=== PATIENT | male | born 1995 | race Caucasian/White ===

== ENCOUNTER 2017-09-19 22:40 | Emergency (ER) | payer SELFPAY ==
[2017-09-19] VITALS (14 sets, daily range): BP systolic 137–151; BP diastolic 78–84; PULSE 95–128; RESP 10–17; TEMP 37.1; O2SAT 80–97
--- NOTE | 2017-09-19 23:24 | ED.GENADUL ---
Disposition Clinical Impression: Heroin overdose Disposition: HOME Condition: Stable Instructions: Narcotic Abuse (ED) Prescriptions: Naloxone HCl [Narcan Nasal [place]] 4 mg NS DIRECTED #2 spray Medical Decision Making - Medical Decision Making Pt here with heroin overdose that responded to narcan, HD stable. Will monitor to make sure he doesn't need any more narcan. patient remains stable and has not required any narcan, will d/c home. He is not interested in info on drug treatment programs - Differential Diagnosis heroin overdose, opiate overdose History of Present Illness - General Chief complaint: OD/Poison Stated complaint: BRADLY Time Seen by Provider: 09/19/17 22:47 Source: patient, EMS Mode of arrival: EMS Limitations: no limitations - History of Present Illness Initial comments: 21 yo male with hx of substance abuse comes in with cc of overdose. HE used IV heroin tonight and became unrespsonive so ems was called and they arrived and he had pinpoint pupils and breathing 6/min so gave him narcan and he became caox4. HE currently has nausea and otherwise no complaints. Denies other drug use. MD Complaint: heroin overdose Onset/Timin -: hour(s) Improves with: none Worsens with: none - Related Data Naloxone HCl [Narcan Nasal [place]] 4 mg NS DIRECTED #2 spray 09/19/17 Allergies Allergy/AdvReac Type Severity Reaction Status Date / Time No Known Allergies Allergy Unverified 09/19/17 23:11 Review of Systems Constitutional: denies: fever Respiratory: denies: shortness of breath Cardiovascular: denies: chest pain Gastrointestinal: nausea. denies: abdominal pain Neurological: denies: headache Comment: All other systems reviewed and negative Past Medical History - Past Medical History Medical history: no medical history Surgical history: no surgical history - Social History Alcohol use: heavy (Drinks half pint of alcohol and several beers daily for years), recent Drug use: cocaine, opiates, marijuana, methamphetamine, IVDA, prescription drug abuse General Exam - General Limitations: no limitations General appearance: alert, in no apparent distress - Head Head exam: Present: atraumatic - Eye Eye exam: Present: normal apperance - ENT ENT exam: Present: mucous membranes moist - Neck Neck exam: Present: normal inspection - Respiratory Respiratory exam: Absent: respiratory distress - Cardiovascular Cardiovascular Exam: Present: regular rate, other (HR 90 on my exam) - Neurological Exam Neurological exam: Present: alert, oriented X3 - Psychiatric Psychiatric exam: Present: normal affect - Skin Skin exam: Present: warm Course Vital Signs - 24 hr 09/19/17 09/19/17 22:57 23:03 Temperature 98.8 F Pulse 111 H Respiratory 17 17 Rate Blood Pressure 137/82 Pulse Oximetry 94 L
[2017-09-20] VITALS: BP 148/91; PULSE 123; PULSE 94; RESP 12; O2SAT 93
[2017-09-20 00:01] VITALS: PULSE 104; RESP 14; O2SAT 91
[2017-09-20 00:27] VITALS: BP 148/91; PULSE 94; RESP 14; O2SAT 91
== END 2017-09-20 00:22 | disposition home or self-care (01) ==
PROVIDERS: Emergency Provider Emergency Medicine; PCP Family Medicine
DX: T40.1X1A Poisoning by heroin, accidental (unintentional), initial encounter (principal); F11.10 Opioid abuse, uncomplicated; F10.10 Alcohol abuse, uncomplicated
CPT/HCPCS: 99283

== ENCOUNTER 2017-10-11 19:21 | Emergency (ER) | payer SELFPAY ==
[2017-10-11 19:25] VITALS: BP 132/77; PULSE 79; RESP 16; TEMP 36.9; O2SAT 97
--- NOTE | 2017-10-11 19:48 | ED.GENADUL_ITS ---
Disposition Clinical Impression: Alcohol intoxication Disposition: OTHER Condition: Fair Instructions: Alcohol Intoxication (ED) Additional Instructions: You are discharged into police custody until you are able to sober up and be reevaluated by mental health. Please discuss options to help with sobriety tomorrow when reevaluated by mental health. If you develop thoughts of self- harm, suicidal ideation, pain, shortness of breath or other new/worsening symptoms please seek care urgently once again. Referrals: Afshan Castaneda MD [Primary Care Provider] - Medical Decision Making - Medical Decision Making Patient is brought in today with chief complaint of intoxication. He is brought in by the police as his alcohol is noted to be 0.32. The report in order to bring the patient into their holding facility they need to have them evaluated with any reading over 0.3. On exam, the patient appears intoxicated but oriented and appropriate. He is cooperative. He denies any suicidal or homicidal ideation. He states that he is feeling great. No abnormalities are noted on this exam. Patient is noted to have healing wounds of his bilateral antecubital area consistent with injections. However, no signs of infection. Patient reports that he has not used in several days. He denies any other illicit drug use. No hemotympanum, no findings to suggest head trauma. Full range of motion of his neck and back. No midline tenderness to palpation. No trauma on chest or back. Strength is equal bilaterally in upper and lower extremities. Neuro exam is intact. At this point, I do not see any medical cause to keep patient. He will be safe custody with police. Mental health was here and plans to evaluate the patient tomorrow. I did discuss with him cessation with alcohol and illicit drug abuse. He does seem interested in help, I did discuss this with mental health will be evaluating him in the morning. At that time, she will discuss further options with him. All his questions and concerns were addressed. Patient is discharged into police custody. History of Present Illness - General Stated complaint: EVAL Time Seen by Provider: 10/11/17 19:23 Source: patient, police Mode of arrival: ambulatory Limitations: other (intoxicated) - History of Present Illness Initial comments: Patient is a 21-year-old male, brought in by police, with chief complaint of alcohol intoxication. The police report that they were contacted by his neighbor after they noted him stumbling down the sidewalk and then stumbling into an apple tree in his front yard. No known trauma. The police went to his house where they found him intoxicated, slurring his words and stumbling. He currently reports that he feels great. He denies any pain. No recent illness, no fevers, chills. No SOB, no CP. Denies BENNETT, neck pain, back pain. He denies any thoughts of self-harm. No suicidal ideation. Denies thoughts of harming others. Denies any hallucinations either visual or auditory. Patient has history of narcotic abuse. He was here 2 months ago after heroin overdose. Denies recent usage. - Related Data Naloxone HCl [Narcan Nasal [place]] 4 mg NS DIRECTED #2 spray 09/19/17 Allergies Allergy/AdvReac Type Severity Reaction Status Date / Time No Known Allergies Allergy Unverified 10/11/17 19:31 Review of Systems Constitutional: no symptoms reported Eyes: denies: vision change ENT: denies: ear pain Respiratory: no symptoms reported Cardiovascular: denies: chest pain, palpitations Gastrointestinal: denies: abdominal pain, nausea, vomiting, diarrhea Genitourinary: denies: urgency (Denies change in urinary habits) Musculoskeletal: denies: back pain Skin: denies: rash, lesions Neurological: denies: headache, weakness, numbness, paresthesias Psychiatric: denies: depression, auditory hallucinations, visual hallucinations , suicidal thoughts Past Medical History - Past Medical History Medical history: hypertension Asperger's, opioid addiction Surgical history: no surgical history - Social History Alcohol use: heavy (Drinks half pint of alcohol and several beers daily for years), recent Drug use: cocaine, opiates, marijuana, methamphetamine, IVDA, prescription drug abuse General Exam - General Limitations: no limitations General appearance: alert, in no apparent distress - Head Head exam: Present: atraumatic, normocephalic, normal inspection - Eye Eye exam: Present: normal apperance, PERRL, EOMI. Absent: scleral icterus, conjunctival injection, nystagmus, periorbital swelling, periorbital tenderness Pupils: Present: normal accommodation - ENT ENT exam: Present: normal exam, normal orophraynx, mucous membranes moist, TM's normal bilaterally, normal external ear exam - Neck Neck exam: Present: normal inspection, full ROM. Absent: tenderness - Respiratory Respiratory exam: Present: normal lung sounds bilaterally. Absent: respiratory distress, chest wall tenderness - Cardiovascular Cardiovascular Exam: Present: regular rate, normal rhythm, normal heart sounds - GI/Abdominal GI/Abdominal exam: Present: soft. Absent: distended, tenderness, guarding - Rectal Rectal exam: Present: deferred - Extremities Exam Extremities exam: Present: normal inspection (5/5 strength testing in both upper and lower extremities bilaterally. No signs of trauma.), full ROM, normal capillary refill. Absent: tenderness - Back Exam Back exam: Present: normal inspection. Absent: tenderness, paraspinal tenderness, vertebral tenderness, rash noted - Neurological Exam Neurological exam: Present: alert, oriented X3, CN II-XII intact, normal gait. Absent: motor sensory deficit - Psychiatric Psychiatric exam: Present: normal affect, normal mood, other (intoxicated ) - Skin Skin exam: Present: warm, dry, normal color (patient has impetigo) Course Vital Signs - 24 hr 10/11/17 19:25 Temperature 36.9 C Pulse 79 Respiratory 16 Rate Blood Pressure 132/77 Pulse Oximetry 97
[2017-10-11 19:57] VITALS: BP 132/77; PULSE 80; RESP 17; TEMP 36.9; O2SAT 97
== END 2017-10-11 20:02 | disposition other institution (70) ==
LOC: ER 10-12 10:14
PROVIDERS: Emergency Provider Student in an Organized Health Care Education/Training Program; PCP Family Medicine
DX: F10.129 Alcohol abuse with intoxication, unspecified (principal); I10 Essential (primary) hypertension
CPT/HCPCS: 99285; 99281

== ENCOUNTER 2017-12-08 17:24 | Emergency (ER) | payer SELFPAY ==
[2017-12-08 17:28] VITALS: BP 145/72; PULSE 105; RESP 17; TEMP 36.7; O2SAT 96
[2017-12-08 17:31] VITALS: RESP 17
[2017-12-08] MEDS: Normal Saline 1,000 ML 1000 ML IV (17:50)
[2017-12-08 17:56] LABS: *AMPHETAMINES SCREEN URINE Negative (Negative); *BARBITURATES SCREEN URINE Negative (Negative); *BENZODIAZEPINES SCREEN URINE Negative (Negative); Cannabinoids THC POSITIVE (Negative); Cocaine Screen,Urine Negative (Negative); METHADONE URINE SCREEN Negative (Negative); OPIATES URINE SCREEN POSITIVE (Negative)
[2017-12-08 17:56] LABS: Abs Immature Grans 0.07 k/cumm (0.0-0.09); Absolute Basophil Count 0.05 k/cumm (0.0-0.2); Absolute Monocyte Count 0.83 k/cumm (0.11-0.7); Absolute Neutrophil Count 7.66 k/cumm (1.2-6.7); Basophils % 0.4; Eosinophils % 3.3; HCT 47.3 % (40.0-50.0); HGB 15.5 g/dL (13.5-17.5); Immature Grans % 0.6; Lymphocytes % 26.4; Mean Corp. HGB Concentration 32.8 g/dL (32.0-36.0); Mean Corpuscular Volume 91.7 fL (80-95); Mean Platelet Volume 10.2 fL (8.0-11.0); Monocytes % 6.8; Neutrophils % 62.5; Platelet Count 189 x1000/uL (130-400); RBC 5.16 m/cumm (4.50-6.00); RBC Distribution Width 15.2 % (11.8-14.1); White Blood Cell Count 12.25 k/cumm (4.4-10.8)
[2017-12-08 17:57] LABS: Absolute Lymphocyte Count 3.23 k/cumm (1.2-3.4)
[2017-12-08 17:59] LABS: Tricyclic Antidepressants Negative (Negative)
[2017-12-08 18:12] LABS: ALT 26 U/L (12-78); AST 24 U/L (15-37); Albumin 4.2 g/dL (3.4-5.0); Alkaline Phosphatase 73 U/L (46-116); Anion Gap 12.3 mmol/L (3-11); BUN 9 mg/dL (7-18); Bilirubin, Total 0.2 mg/dL (0.2-1.0); CO2 25.7 mmol/L (21.0-32.0); CREATININE 0.79 mg/dL (0.70-1.30); Chloride 101 mmol/L (98-107); ETHANOL BLOOD 238.3 mg/dL (<3); Glucose 123 mg/dL (70-100); Potassium 3.6 mmol/L (3.5-5.1); Sodium 139 mmol/L (136-145); Total Protein 8.4 g/dL (6.4-8.2)
--- NOTE | 2017-12-08 19:47 | ED.GENADUL_ITS ---
Discharge Plan Disposition Patient Disposition: HOME Condition: Good Discharge Details Chief Complaint: OD/Poison Clinical Impression: Overdose Reason For Visit: BRADLY Primary Care Provider: Afshan Castaneda ED Provider: Rodo Moreno Home Meds and New Rx's Prescriptions: New naloxone [Narcan] 4 mg/actuation spray,non-aerosol 1 spray JESS ONCE PRN (Reason: opioid overdose) Qty: 2 RF: 0 No Action naloxone [Narcan] 4 MG spray,non-aerosol 4 mg NS DIRECTED Qty: 2 RF: 0 Discharge Instructions Instructions: Narcotic Abuse (ED) Additional Instructions: Please stop drinking alcohol and stop taking heroin. This will lead to early . Referrals: Afshan Castaneda MD [Primary Care Provider] - Medical Decision Making This is a 22-year-old male who presents for evaluation of overdose. He had a needle at home which he used to inject his regular dose of home heroin , he also had 4 alcoholic beverages today which he states is his norm. At home family thought that he stopped breathing, and they started CPR and him, EMS was called, when EMS arrived no Narcan had been given, over the patient was clearly breathing and fighting the person that was trying to do CPR. Patient was awake alert and oriented, and did demonstrate mild intoxication was brought to the ER for further evaluation. On initial assessment patient appears awake alert and oriented with no signs of hypoxemia or respiratory distress or failure. No evidence of decreased respirations. We will monitor the patient, I see no need to give Narcan at this time as he is stable. He denies any other drugs or intoxicants. He denies any other complaints 7:40 PM The patient has been observed here in the emergency department, he has shown no signs of respiratory distress. He is mentating well. He shows no signs of intoxication at this time. His pupils are reactive and no longer pinpoint. I feel that the heroin has worn off. The patient is able to speak clearly. There is no demonstration of any slurring of speech. There is evidence of clear decision making capacity. Patient is able to ambulate well without any difficulty. There are no signs of ataxia or stumbling motions. His brother has come to pick him up, and I feel he can be safely discharged home. We discussed the importance of not taking heroin and avoiding alcohol. I have extensively reviewed the treatment plan and discharge instructions with the patient and their family. I have addressed all patient concerns at this time. The patient and family was made aware of what symptoms to monitor for that would warrant a return to the emergency department. Discussed the plan with the patient and family, they demonstrate verbal understanding and agreement with our assessment and plan at this time. HPI General Date/Time Provider Initiated Documentation: 12/08/17 17:31 . HPI Narrative: This is a 22-year-old male with a past medical history of overdose and narcotic use, who presents today for alcohol use and opiate use. Per EMS and the patient he had been drinking for man cancer today, and took his regular IV injection dose of heroin. Family thought he had after this and started doing CPR, but the time the EMS arrived the patient was definitely not , and trying to push off the people doing the CPR. There was a needle right next to the patient. It was no need for Narcan at the time. The patient did appear slightly drowsy and pupils are slightly pinpoint however he was breathing and saturating well although clearly high. He was brought to the ER for further evaluation. He denies any homicidal or suicidal ideations, he denies any other medications that he is taking. He states that he just takes heroin and drinks beer. Patient denies any other complaints at this time, denies any recent surgeries, and denies any pertinent family history. Related Data Home Medications Medication Instructions Recorded Confirmed naloxone [Narcan] 4 mg NS DIRECTED #2 spray 09/19/17 12/08/17 naloxone [Narcan] 1 spray JESS ONCE PRN #2 each 12/08/17 Previous Rx's Medication Instructions Recorded naloxone [Narcan] 4 mg NS DIRECTED #2 spray 09/19/17 naloxone [Narcan] 1 spray JESS ONCE PRN #2 each 12/08/17 Allergies Allergy/AdvReac Type Severity Reaction Status Date / Time No Known Allergies Allergy Unverified 12/08/17 17:34 General Stated Complaint: OD/Poison DERIC: 2 Review of Systems Review of Systems All systems reviewed & are unremarkable except as noted in HPI and below PFSH Family History Mother Essential hypertension Depression Father No problems noted. Sister Essential hypertension Sister No problems noted. Brother No problems noted. FAMILY HISTORY Substance abuse Alcohol abuse Essential hypertension Depression Social History Smoking/Tobacco Use Status: Current every day Exam Narrative Exam Narrative: 1.Const: Well-nourished, Well-developed, appearing stated age 2.Eyes: PERRL, no conjunctival injection, and symmetrical lids. Pupils were slightly pinpoint. Otherwise reactive. 3.ENT: Atraumatic external nose and ears. Moist MM. Neck: Symmetric, trachea midline, No thyromegaly. 4.CVS: +S1/S2, No murmurs or gallops. Peripheral pulses 2+ and equal in all extremities. Brisk capillary refill in all extremities. 5.RESP: Unlabored respiratory effort. Clear to auscultation bilaterally. No wheezes rales or rhonchi 6.GI: Soft, Nontender/Nondistended, No hepatosplenomegaly. No guarding or rebound. 7.MSK: Normocephalic/Atraumatic, Extremities w/o deformity or ttp No cyanosis or clubbing, Normal movement of all extremities 8.Skin: Warm, Dry. No rashes or lesions. Old needle garcia are present. 9.Neuro: licensed tax consultant II-XII grossly intact. Sensation grossly intact, no focal neurologic deficits. 10.Psych: (AAO) x3. Appropriate mood and affect. Minimally intoxicated Course Vital Signs Temperature 36.7 C 12/08/17 17:28 Pulse 105 H 12/08/17 17:28 Respiratory Rate 17 12/08/17 17:28 Blood Pressure 145/72 H 12/08/17 17:28 Pulse Oximetry 96 12/08/17 17:28 Temperature 36.7 C 12/08/17 17:28 Temperature Source Skin 12/08/17 17:28 Pulse 105 H 12/08/17 17:28 Respiratory Rate 17 12/08/17 17:31 Respiratory Effort Non-Labored 12/08/17 17:31 Respiratory Depth Normal 12/08/17 17:31 Respiratory Pattern Normal 12/08/17 17:31 Blood Pressure 145/72 H 12/08/17 17:28 Pulse Oximetry 96 12/08/17 17:28 Pain Level 0 12/08/17 17:28 Lab/Test Results Lab/Test Results: Laboratory Tests Range/Units 12/08/17 12/08/17 12/08/17 17:35 17:45 17:45 WBC (4.4-10.8) k/cumm 12.25 H RBC (4.50-6.00) m/cumm 5.16 Hgb (13.5-17.5) g/dL 15.5 Hct (40.0-50.0) % 47.3 MCV (80-95) fL 91.7 MCH (27.0-33.0) pg 30.0 MCHC (32.0-36.0) g/dL 32.8 RDW (11.8-14.1) % 15.2 H Plt Count (130-400) x1000/uL 189 MPV (8.0-11.0) fL 10.2 Immature Gran % 0.6 Neutrophils % 62.5 Lymphocytes % 26.4 Monocytes % 6.8 Eosinophils % 3.3 Basophils % 0.4 Absolute Neutrophils (1.2-6.7) k/cumm 7.66 H Absolute Lymphocytes (1.2-3.4) k/cumm 3.23 Absolute Monocytes (0.11-0.7) k/cumm 0.83 H Absolute Eosinophils (0.0-0.7) k/cumm 0.40 Absolute Basophils (0.0-0.2) k/cumm 0.05 Sodium (136-145) mmol/L 139 Potassium (3.5-5.1) mmol/L 3.6 Chloride (98-107) mmol/L 101 Carbon Dioxide (21.0-32.0) mmol/L 25.7 Anion Gap (3-11) mmol/L 12.3 H BUN (7-18) mg/dL 9 Creatinine (0.70-1.30) mg/dL 0.79 Estimated GFR/1.73 m2 (mL/min/1.73m2) >= 60.00 Glucose (70-100) mg/dL 123 H Calcium (8.5-10.1) mg/dL 9.0 Total Bilirubin (0.2-1.0) mg/dL 0.2 AST (15-37) U/L 24 ALT (12-78) U/L 26 Alkaline Phosphatase (46-116) U/L 73 Total Protein (6.4-8.2) g/dL 8.4 H Albumin (3.4-5.0) g/dL 4.2 Urine Opiates Screen (Negative) Positive Urine Methadone Screen (Negative) Negative Ur Barbiturates Screen (Negative) Negative Ur Tricyclics Screen (Negative) Negative Ur Amphetamines Screen (Negative) Negative U Benzodiazepines Scrn (Negative) Negative Urine Cocaine Screen (Negative) Negative Ur THC Screen (Negative) Positive Ethyl Alcohol (<3) mg/dL 238.3
--- NOTE | 2017-12-09 07:08 | PDOC.ERCMPRO ---
Care Management Progress Note 12/09-Dr. Moreno requested assistance with an adult PCP ([facility] PCP office). No ED f/u needed. 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 Dr. Moreno also requesting information about SHAUN. Dr. Park container shop welder. Referral faxed to [facility]. Tried calling Earl but the woman that answered the phone stated she had not had contact with Earl for a long time and that she does not take messages for him.
--- NOTE | 2017-12-09 07:13 | CMPROGNOTE_ITS ---
Care Management Progress Note 12/09-Dr. Moreno requested assistance with an adult PCP ([facility] last PCP office). No ED f/u needed. Dr Park composition siding worker. Dr. Moreno also requesting information about SHAUN. Dr. Park composition siding worker. Referral faxed to [facility]. Tried calling Earl but the woman that answered the phone stated she had not had contact with Earl for a long time and that she does not take messages for him.
== END 2017-12-08 19:49 | disposition home or self-care (01) ==
PROVIDERS: Emergency Provider Student in an Organized Health Care Education/Training Program; PCP Family Medicine
DX: T40.1X1A Poisoning by heroin, accidental (unintentional), initial encounter (principal)
CPT/HCPCS: 36415; 80053; 80307; 99283; 80320; 85025

== ENCOUNTER 2018-02-15 00:33 | Emergency (ER) | payer SELFPAY ==
--- NOTE | 2018-02-15 00:28 | W.ED.GENAD ---
Discharge Plan Disposition Patient Disposition: HOME Condition: Stable Discharge Details Chief Complaint: HeadInjury Clinical Impression: Alcohol intoxication, Head trauma, Cervical strain Reason For Visit: BRADLY Primary Care Provider: Afshan Castaneda ED Provider: Monroe Ken Home Meds and New Rx's Prescriptions: No Action naloxone [Narcan] 4 MG spray,non-aerosol 4 mg NS DIRECTED Qty: 2 RF: 0 naloxone [Narcan] 4 mg/actuation spray,non-aerosol 1 spray JESS ONCE PRN (Reason: opioid overdose) Qty: 2 RF: 0 Discharge Instructions Instructions: Cervical Strain (ED) Additional Instructions: Your cat scan did not show any bleeding or broken bones if you have pain tomorrow take 1000mg tylenol and 600mg ibuprofen every 6 hours for pain as needed If you have pain this week see your primary care provider return to the emergency department if you have abdominal pain, chest pain or difficulty breathing Medical Decision Making 22 yo male reportedly had significant amount of alcohol tonight and fell twice from standing. Unknown loc, has hematoma to the posterior scalp. Is moving all extremities with intact sensation. Does have smell of alcohol on his breath with mild slurring of speech consistent with alcohol intoxication. Will CT head and c spine to evaluate for traumatic injuries and monitor pt remains stable, is now caox4, ct negative and no pain on rom and palpation. Will d/c with his friend, concussion precautions given Differential Diagnosis drug overdose, alcohol intoxication Imaging Data Radiologic Study: Attestation: I personally reviewed and interpreted this imaging study as follows: Imaging: CT Scan Radiologist's impression: no acute findings HPI General Mode of arrival: EMS. Date/Time Provider Initiated Documentation: 02/15/18 00:37. Limitations to Documentation: altered mental status (alcohol intoxication). Information obtained by: EMS. History of Present Illness 22 year old M presents to the emergency department with the chief complaint of fall, and is localized to the head. Patient reports no radiation. Patient started experiencing this hour(s) (1) and it has been constant. No relieving factors improve symptom(s), No exacerbating factors reported . Patient did receive the following treatments prior to arrival, none Related Data Home Medications Medication Instructions Recorded Confirmed naloxone [Narcan] 4 mg NS DIRECTED #2 spray 09/19/17 12/08/17 naloxone [Narcan] 1 spray JESS ONCE PRN #2 each 12/08/17 Previous Rx's Medication Instructions Recorded naloxone [Narcan] 4 mg NS DIRECTED #2 spray 09/19/17 naloxone [Narcan] 1 spray JESS ONCE PRN #2 each 12/08/17 Allergies Allergy/AdvReac Type Severity Reaction Status Date / Time No Known Allergies Allergy Unverified 02/15/18 00:43 General DERIC: 2 Review of Systems Review of Systems All systems reviewed & are unremarkable except as noted in HPI and below Constitutional Denies chills, Denies fever(s) and Denies weakness Cardiovascular Denies chest pain and Denies dyspnea Respiratory Denies dyspnea Gastrointestinal Denies abdominal pain, Denies nausea and Denies vomiting Neurologic Denies weakness Psychiatric Denies depression PFSH Family History Mother Essential hypertension Depression Father No problems noted. Sister Essential hypertension Sister No problems noted. Brother No problems noted. FAMILY HISTORY Substance abuse Alcohol abuse Essential hypertension Depression Social History Smoking/Tobacco Use Status: Current every day Exam Const General: no acute distress Orientation: alert HENMT Head: normal to inspection Ears: external ears normal General nose exam: external nose normal Mouth: moist mucous membranes Eyes General: appearance normal, both eyes and all related structures Neck Neck: normal visual inspection Resp Effort & Inspection: normal respiratory effort and able to speak in complete sentences Cardio Rate: regular rate Skin General skin exam: no rashes or lesions noted Neuro General: alert and other (oriented to name and place, not time. Mild slurred speech) Extrem General: normal to inspection Psych Mental Status: mental status grossly normal
--- NOTE | 2018-02-15 00:37 | DI.CT_ITS ---
SYMPTOM/DIAGNOSIS: FELL, INTOXICATED, HIT HEAD, PAIN NONCONTRAST HEAD CT: Comparison is made with 08/22/17. There is a normal lopez white matter differentiation. No intracranial hemorrhage, infarct, midline shift or mass effect is identified. The ventricles are intact. The basilar cisterns are patent. There is mucosal thickening seen in the ethmoid air cells bilaterally. There is marked mucosal thickening seen in the left maxillary sinus. No fluid levels are seen. The mastoid air cells are well pneumatized. The calvarium is intact. There does appear to be some soft tissue swelling over the scalp posteriorly. IMPRESSION: No acute intracranial process. No acute fracture is seen. CERVICAL SPINE CT: Multiple contiguous axial images of the cervical spine were obtained. Sagittal and coronal reformatted images were evaluated on the Siemens work station. There is normal alignment of the cervical spine. No acute fracture or subluxation is seen. There is mild straightening of the normal cervical lordosis. This may be due to muscle spasm or patient positioning. The soft tissues are unremarkable. The lung apices are clear. IMPRESSION: No acute fracture or subluxation of the cervical spine. There is some straightening of the normal cervical lordosis. This may be due to patient positioning or muscle spasm.
[2018-02-15 00:38] VITALS: BP 138/68; PULSE 100; RESP 20; TEMP 36.5; O2SAT 90
--- NOTE | 2018-02-15 00:41 | ED.GENADUL_ITS ---
Discharge Plan Disposition Patient Disposition: HOME Condition: Stable Discharge Details Chief Complaint: HeadInjury Clinical Impression: Alcohol intoxication, Head trauma, Cervical strain Reason For Visit: BRADLY Primary Care Provider: Afshan Castaneda ED Provider: Monroe Ken Home Meds and New Rx's Prescriptions: No Action naloxone [Narcan] 4 MG spray,non-aerosol 4 mg NS DIRECTED Qty: 2 RF: 0 naloxone [Narcan] 4 mg/actuation spray,non-aerosol 1 spray JESS ONCE PRN (Reason: opioid overdose) Qty: 2 RF: 0 Discharge Instructions Instructions: Cervical Strain (ED) Additional Instructions: Your cat scan did not show any bleeding or broken bones if you have pain tomorrow take 1000mg tylenol and 600mg ibuprofen every 6 hours for pain as needed If you have pain this week see your primary care provider return to the emergency department if you have abdominal pain, chest pain or difficulty breathing Medical Decision Making 22 yo male reportedly had significant amount of alcohol tonight and fell twice from standing. Unknown loc, has hematoma to the posterior scalp. Is moving all extremities with intact sensation. Does have smell of alcohol on his breath with mild slurring of speech consistent with alcohol intoxication. Will CT head and c spine to evaluate for traumatic injuries and monitor pt remains stable, is now caox4, ct negative and no pain on rom and palpation. Will d/c with his friend, concussion precautions given Differential Diagnosis drug overdose, alcohol intoxication Imaging Data Radiologic Study: Attestation: I personally reviewed and interpreted this imaging study as follows: Imaging: CT Scan Radiologist's impression: no acute findings HPI General Mode of arrival: EMS . Date/Time Provider Initiated Documentation: 02/15/18 00:37 . Limitations to Documentation: altered mental status (alcohol intoxication) . Information obtained by: EMS . History of Present Illness 22 year old M presents to the emergency department with the chief complaint of fall, and is localized to the head. Patient reports no radiation. Patient started ex periencing this hour(s) (1) and it has been constant. No relieving factors improve symptom(s), No exacerbating factors reported . Patient did receive the following treatments prior to arrival, none Related Data Home Medications Medication Instructions Recorded Confirmed naloxone [Narcan] 4 mg NS DIRECTED #2 spray 09/19/17 12/08/17 naloxone [Narcan] 1 spray JESS ONCE PRN #2 each 12/08/17 Previous Rx's Medication Instructions Recorded naloxone [Narcan] 4 mg NS DIRECTED #2 spray 09/19/17 naloxone [Narcan] 1 spray JESS ONCE PRN #2 each 12/08/17 Allergies Allergy/AdvReac Type Severity Reaction Status Date / Time No Known Allergies Allergy Unverified 02/15/18 00:43 General DERIC: 2 Review of Systems Review of Systems All systems reviewed & are unremarkable except as noted in HPI and below Constitutional Denies chills, Denies fever(s) and Denies weakness Cardiovascular Denies chest pain and Denies dyspnea Respiratory Denies dyspnea Gastrointestinal Denies abdominal pain, Denies nausea and Denies vomiting Neurologic Denies weakness Psychiatric Denies depression PFSH Family History Mother Essential hypertension Depression Father No problems noted. Sister Essential hypertension Sister No problems noted. Brother No problems noted. FAMILY HISTORY Substance abuse Alcohol abuse Essential hypertension Depression Social History Smoking/Tobacco Use Status: Current every day Exam Const General: no acute distress Orientation: alert HENMT Head: normal to inspection Ears: external ears normal General nose exam: external nose normal Mouth: moist mucous membranes Eyes General: appearance normal, both eyes and all related structures Neck Neck: normal visual inspection Resp Effort & Inspection: normal respiratory effort and able to speak in complete sentences Cardio Rate: regular rate Skin General skin exam: no rashes or lesions noted Neuro General: alert and other (oriented to name and place, not time. Mild slurred speech) Extrem General: normal to inspection Psych Mental Status: mental status grossly normal
--- NOTE | 2018-02-15 01:30 | DI.VRAD_ITS ---
EXAM: CT Head Without Contrast EXAM DATE/TIME: 02/15/2018 12:39 AM CLINICAL HISTORY: 22 years old, male; Injury or trauma; Fall; Initial encounter; Blunt trauma (contusions or hematomas); Consciousness not specified; Injury date: 02/14/18; Injury details: Fall and hit head, +etoh TECHNIQUE: Axial computed tomography images of the head/brain without contrast. All CT scans at this facility use at least one of these dose optimization techniques: automated exposure control; mA and/or kV adjustment per patient size (includes targeted exams where dose is matched to clinical indication); or iterative reconstruction. Coronal and sagittal reformatted images were created and reviewed. COMPARISON: No relevant prior studies available. FINDINGS: Brain: No acute intracranial hemorrhage. No mass lesion or mass effect. Beltre/white matter differentiation is unremarkable. Cerebellum is unremarkable. Cisterns are unremarkable. Brainstem is unremarkable. No suprasellar mass. Ventricles: Normal. No ventriculomegaly. Bones/joints: Posterior scalp soft tissue swelling.No evidence of fracture. Sinuses: Extensive mucosal thickening in the left maxillary sinus. Mild mucosal thickening in bilateral ethmoid sinuses. Mastoid air cells: Normal as visualized. No mastoid effusion. Soft tissues: Normal. IMPRESSION: Posterior scalp soft tissue swelling.No evidence of fracture. No evidence of acute intracranial bleed. EXAM: CT Cervical Spine Without Contrast EXAM DATE/TIME: 02/15/2018 12:39 AM CLINICAL HISTORY: 22 years old, male; Injury or trauma; Fall; Initial encounter; Blunt trauma (contusions or hematomas); Consciousness not specified; Injury date: 02/14/18; Injury details: Fall and hit head, +etoh TECHNIQUE: Axial computed tomography images of the cervical spine without intravenous contrast. All CT scans at this facility use at least one of these dose optimization techniques: automated exposure control; mA and/or kV adjustment per patient size (includes targeted exams where dose is matched to clinical indication); or iterative reconstruction. Coronal and sagittal reformatted images were created and reviewed. COMPARISON: No relevant prior studies available. FINDINGS: Vertebrae: No fracture or dislocation. Vertebral body heights are within normal limits. Straightening of normal lordotic curvature. Discs/Spinal canal/Neural foramina: Disc heights are maintained. No CT evidence of significant disc herniation. No disc protrusion or extrusion. Soft tissues: Unremarkable. Lungs: Lung apices are normal. IMPRESSION: Straightening of normal lordotic curvature. No fracture or dislocation in cervical spine. Dictated and Authenticated by: To Encarnacion MD. Ordering:MYAH Childress MD
== END 2018-02-15 02:51 | disposition home or self-care (01) ==
PROVIDERS: Emergency Provider Emergency Medicine; PCP Family Medicine
DX: S09.90XA Unspecified injury of head, initial encounter (principal); S16.1XXA Strain of muscle, fascia and tendon at neck level, initial encounter; F10.129 Alcohol abuse with intoxication, unspecified; W18.39XA Other fall on same level, initial encounter
CPT/HCPCS: 70450; 72125; L0172

== ENCOUNTER 2020-06-20 16:45 | Emergency (ER) | payer MEDICAID, SELFPAY ==
--- NOTE | 2020-06-20 16:56 | ED.GENADUL_ITS ---
Discharge Plan Disposition Patient Disposition: HOME Condition: Good Discharge Details Clinical Impression: Contusion of foot, Foot swelling Primary Care Provider: Unknown,Unknown ED Provider: Laverne Amador Discharge Instructions Instructions: Foot Contusion (ED) Additional Instructions: Imaging is reassuring today. No evidence of fracture. This is likely all associated with contusion. Please encourage rest, ice, elevation. Tylenol and ibuprofen as needed for discomfort. You may continue with the postoperative shoe to help with discomfort and immobilization. You may advance activities as tolerated. Referral for local primary care has been sent. If you develop any new or worsening symptoms please seek care urgently once again. Otherwise, please follow-up with primary care in 2 weeks for reevaluation. Stand Alone Forms: Work Release Discharge Data Discharge Date/Time-TO BE ENTERED AT DEPARTURE: 06/20/20 18:29 Medical Decision Making Patient is a pleasant 24-year-old male presenting today with chief complaint of left foot pain. He reports that a few days ago he was moving cinderblocks when 1 excellently fell landing on the forefoot. Since then, he has been having pain, swelling. The pain is much worse when weightbearing. Denies other injury from the incident. Denies any numbness or tingling. On exam, patient has swelling over the dorsal aspect of the forefoot. No ecchymosis or breaks in the skin. Neurovascularly intact. No injury elsewhere. Plan for imaging. Patient has been using Tylenol and ibuprofen to help with discomfort. FINDINGS: Bones/joints: Normal. Soft tissues: There is soft tissue swelling at the dorsum of the foot. IMPRESSION: Soft tissue swelling. Discussed findings with the patient. Encourage rest, ice, elevation. Tylenol and/or ibuprofen as needed for discomfort. Advised contusion. Will give a postoperative splint to help with discomfort. Return precautions were discussed. Patient does not have a local primary care, will have care management help and orchestrating follow-up in the next 2 weeks for r eevaluation. All of his questions and concerns were addressed and he is in agreement this plan. Work note given at patient's request. HPI General Mode of arrival: ambulatory . Date/Time Provider Initiated Documentation: 06/20/20 16:56 . Limitations to Documentation: no limitations . Information obtained by: patient and RN notes reviewed . History of Present Illness 24 year old M presents to the emergency department with the chief complaint of left foot pain, described as moderate, with intensity rated at 5. Quality is described as aching, and is localized to the left and lower extremity. Patient reports no radiation. Patient started experiencing this day(s) (3) and it has been constant. Immobilization improves symptom(s), Movement worsens symptoms . Patient notes no other symptoms.. Patient did receive the following treatments prior to arrival, NSAID and other (tylenol) Related Data Allergies Allergy/AdvReac Type Severity Reaction Status Date / Time No Known Allergies Allergy Unverified 06/20/20 17:20 General DERIC: 2 Review of Systems Constitutional Constitutional: Reports as per HPI, Denies chills, Denies fever(s), Denies headache(s) and Denies weakness ENT Ears, Nose, Mouth, and Throat: Denies headache(s) Cardiovascular Cardiovascular: Reports as per HPI Respiratory Respiratory: Reports as per HPI and Denies cough Musculoskeletal Musculoskeletal: Reports as per HPI and Denies tingling Integumentary/Breasts Skin/Breast: Reports as per HPI, Denies rash and Denies wounds Neurologic Neurologic: Reports as per HPI, Denies headache(s), Denies tingling, Denies paresthesias and Denies weakness PFSH Family History Mother Essential hypertension Depression Father No problems noted. Sister Essential hypertension Sister No problems noted. Brother No problems noted. FAMILY HISTORY Substance abuse Alcohol abuse Essential hypertension Depression Social History Smoking/Tobacco Use Status: Current every day Smoking risk assessment performed?: Yes Alcohol Intake: current Alcohol Intake frequency: holidays/special occasions only Drug use: Daily Substance use type: marijuana Do you feel safe at home: Yes Do you feel safe in your relationship?: Yes Exam Const General: cooperative, healthy appearing, comfortable, no acute distress, well developed and well groomed Nutritional Appearance: average body habitus and well nourished Orientation: alert and awake Resp Effort & Inspection: normal respiratory effort, able to speak in complete sentences and no respiratory distress Cardio Rate: regular rate Rhythm: regular rhythm Skin General skin exam: no rashes or lesions noted Lesions: no lesions Rashes: no rashes Trauma: no lacerations or abrasions Neuro General: patient alert and patient awake Cognition: normal cognition Speech: speech normal Gait: antalgic Motor: muscle tone normal throughout Sensory Exam: no sensory deficits noted Extrem Ankle/foot/toe images: 1. Area of swelling. No ecchymosis. No break in the skin. No palpable deformity. No pain palpation about the toes. Range of motion is intact. Sensation is intact. 2+ distal pulses. No pain with palpation over the proximal fifth metatarsal. No pain in the ankle. Psych Appearance: grossly normal and well kempt Mental Status: mental status grossly normal Speech and Movement: speech and movement normal
[2020-06-20 17:14] VITALS: BP 143/73; PULSE 72; RESP 15; TEMP 36.6; O2SAT 97
--- NOTE | 2020-06-20 17:15 | DI.RAD_ITS ---
Exam(s) XR FOOT LT COMPLETE EXAM: XR FOOT LT COMPLETE CLINICAL HISTORY: dropped cinder block on foot, forefoot pain TECHNIQUE: COMPARISON: No exams were available for comparison FINDINGS: Three views were obtained. No fracture is seen. IMPRESSION: RADIATION DOSE DELIVERED: Total DLP
--- NOTE | 2020-06-20 17:45 | DI.VRAD_ITS ---
PROCEDURE INFORMATION: Exam: XR Left Foot Exam date and time: 06/20/2020 5:33 PM Age: 24 years old Clinical indication: Left; Patient HX: Dropped cinder block on foot, forefoot pain TECHNIQUE: Imaging protocol: XR Left foot. Views: 3 or more views. COMPARISON: No relevant prior studies available. FINDINGS: Bones/joints: Normal. Soft tissues: There is soft tissue swelling at the dorsum of the foot. IMPRESSION: Soft tissue swelling. Dictated and Authenticated by: Jorge Bbab MD. Ordering:LETA Galloway MD
--- NOTE | 2020-06-20 18:04 | NUR.NOTE ---
Nursing Note: Referral given to Care Management to establish care/follow up foot contusion, in 2 weeks. Gracie Diaz
--- NOTE | 2020-06-21 11:16 | PDOC.ERCMPRO ---
Care Management Progress Note CM faxed referral to [facility] for PCP attachment as requested.
--- NOTE | 2020-06-26 14:31 | NUR.NOTE ---
Nursing Note: Patient called lost his work release note. Asked if we could fax to his place of work and I faxed it. Gracie Diaz Melinda fax [phone].
== END 2020-06-20 18:29 | disposition home or self-care (01) ==
PROVIDERS: Emergency Provider Physician Assistant
DX: S90.32XA Contusion of left foot, initial encounter (principal); W20.8XXA Other cause of strike by thrown, projected or falling object, initial encounter
CPT/HCPCS: 99283; 73630

== ENCOUNTER 2021-06-27 10:03 | Emergency (ER) | payer MEDICAID, SELFPAY ==
[2021-06-27 10:05] VITALS: BP 158/98; PULSE 100; RESP 16; TEMP 36.2; O2SAT 96
--- NOTE | 2021-06-27 10:16 | W.ED.GENAD ---
Discharge Plan Disposition Patient Disposition: AGAINST MEDICAL ADVICE Condition: Stable Discharge Details Clinical Impression: Overdose of fentanyl, Respiratory arrest Primary Care Provider: Unknown,Unknown ED Provider: Xochitl Solis Home Meds and New Rx's Prescriptions: No Action No Known Home Meds Discharge Instructions Instructions: Narcotic Safety (ED), Adult Overdose (ED) Additional Instructions: You are leaving the hospital AGAINST MEDICAL ADVICE. The effects of Narcan wears off and you may stop breathing again due to long-lasting effects of fentanyl. You are given Narcan to go to use as needed and directed. You have been placed on care management list to arrange for a follow-up appointment with the primary care doctor to establish care and for reevaluation. Return to the emergency department with any worsening or new concerning symptoms. Discharge Data Discharge Date/Time-TO BE ENTERED AT DEPARTURE: 06/27/21 10:33 Discharge Physician: Xochitl Solis Medical Decision Making 25-year-old male presented as a reported respiratory arrest after suspected fentanyl overdose. EMS reported patient's friend called EMS after CPR in progress per friend for suspected fentanyl overdose. Patient admitted to injecting heroin prior to EMS arrival. He states he also started methadone today. Initial saturation 70% on room air on EMS arrival with breaths provided with BVM. Patient was given a total of 6 mg Narcan per EMS. EMS reports patient was slow to respond but eventually awake and alert with oxygen saturation 96% on room air. Arrived to the ED awake and alert with oxygen saturation 96% on room air. Blood pressure 158/98. Pulse 100. He appears disheveled. No evidence of trauma on exam. He appears nontoxic. It was reported by EMS that friend stated patient told him he injected fentanyl to harm himself. Patient denied this to the nurse and myself. He states he has no thoughts of harming himself. Patient states he would like to leave. The risks of and disability due to short half-life of Narcan resulting in respiratory depression explained and patient understands. He demonstrates capacity to make decisions. AMA form signed. He was given Narcan to go. He was placed on care management list to arrange for follow-up appointment with a primary care doctor to establish care. Usual and customary return precautions given prior to leaving. Jo with [facility] was provided with pt's information for follow up per previously reported self harm. Medical Records Medical records reviewed: Yes I reviewed the patient's medical records. HPI General Mode of arrival: ambulatory. Date/Time Provider Initiated Documentation: 06/27/21 10:15. Limitations to Documentation: no limitations. Information obtained by: patient. HPI Narrative: Patient is a 25-year-old male who presents per EMS for respiratory arrest with suspected fentanyl overdose with response to Narcan. EMS called to scene after friend found patient not breathing. EMS reported that friend started CPR prior to EMS arrival. Upon EMS arrival, patient had a faint pulse and was given a total of 6 mg of Narcan and breaths provided with BVM. EMS reports that patient was slow to respond to the Narcan and additionally had oxygen saturations of 70% but eventually was 96% on room air and awake. Patient reports that he injected heroin or fentanyl in his left arm prior to EMS arrival. EMS had reported that friend stated patient told him he did to harm himself but patient adamantly denies this. He states he has no desire to harm himself and is requesting to go home. Patient states he started methadone from the [facility]. Patient states he occasionally smokes crack cocaine and last use last night. Related Data Home Medications Medication Instructions Recorded Confirmed Unknown [No Known Home Meds] 06/27/21 06/27/21 Allergies Allergy/AdvReac Type Severity Reaction Status Date / Time No Known Allergies Allergy Unverified 06/27/21 10:12 General Stated Complaint: OD/Poison DERIC: 2 Review of Systems All systems reviewed & are unremarkable except as noted in HPI and below Constitutional Constitutional: Denies chills, Denies excessive sweating, Denies fatigue, Denies fever(s), Denies weakness and Denies weight loss Eyes Eyes: Reports system reviewed and no additional complaints, except as documented and Denies blurry vision ENT Ears, Nose, Mouth, and Throat: Denies vertigo, Denies dizziness, Denies otalgia, Denies nasal congestion, Denies sore throat and Denies throat swelling Cardiovascular Cardiovascular: Denies chest pain, Denies syncope, Denies rapid heart rate and Denies dyspnea Respiratory Respiratory: Denies chest congestion, Denies cough, Denies pain on inspiration and Denies dyspnea Gastrointestinal Gastrointestinal: Denies abdominal pain, Denies diarrhea and Denies vomiting Genitourinary Genitourinary: Denies hematuria, Denies dysuria and Denies flank pain Musculoskeletal Musculoskeletal: Denies back pain and Denies joint swelling Integumentary/Breasts Skin/Breast: Denies lesions and Denies rash Neurologic Neurologic: Denies behavioral changes, Denies confusion, Denies vertigo, Denies dizziness, Denies syncope, Denies localized weakness and Denies weakness Psychiatric Psychiatric: Denies behavioral changes, Denies confusion and Denies depression Endocrine Endocrine: Denies excessive sweating and Denies fatigue Hematologic/Lymphatic Hematologic/Lymphatic: Denies easy bruising and Denies lymphadenopathy Allergic/Immunologic Allergic/Immunologic: Denies throat swelling PFSH All Active Problems (Updated 06/27/21 @ 10:26 by Xochitl Solis DO) Contusion of foot (Acute) Foot swelling (Acute) Overdose of fentanyl (Acute) Respiratory arrest (Acute) Medical History (Updated 06/27/21 @ 10:26 by Xochitl Solis DO) Vitiligo Surgical History (Updated 06/27/21 @ 10:26 by Xochitl Solis DO) No significant past surgical history Family History Mother Essential hypertension Depression Father No problems noted. Sister Essential hypertension Sister No problems noted. Brother No problems noted. FAMILY HISTORY Substance abuse Alcohol abuse Essential hypertension Depression Social History Smoking/Tobacco Use Status: Current every day Tobacco Type: cigarettes Smoking risk assessment performed?: Yes Alcohol Intake: current Alcohol Intake frequency: holidays/special occasions only Drug use: Daily Substance use type: marijuana and opiates Do you feel safe at home: Yes Do you feel safe in your relationship?: Yes Exam Const General: cooperative and disheveled Orientation: alert, awake and oriented x3 HENMT Head: normal to inspection Ears: hearing grossly normal bilaterally and external ears normal General nose exam: external nose normal Face and sinus: normal facial exam Mouth: oral mucosae normal and tongue abnormal discolored (yellowish, consistent with tobacco use) Teeth and gingiva: poor dentition Throat: posterior oropharynx normal Eyes General: appearance normal, both eyes and all related structures Eyelids: eyelids normal Pupils: PERRL EOM: EOM intact bilaterally Neck Neck: normal visual inspection Lymphatic: no lymphadenopathy noted Chest Chest: normal inspection of the chest Resp Effort & Inspection: normal respiratory effort and able to speak in complete sentences Auscultation: clear to auscultation bilaterally Cardio Rate: regular rate Rhythm: regular rhythm GI Inspection: normal to inspection Palpation: soft, not firm, no guarding, no hepatosplenomegaly, no masses and nontender Auscultation: normal bowel sounds Back/Spine/Pelvis Back: no CVA tenderness Skin General skin exam: no rashes or lesions noted Neuro General: patient alert and patient awake Cognition: normal cognition Speech: speech normal Gait: normal gait Motor: muscle tone normal throughout Sensory Exam: no sensory deficits noted Extrem General: normal to inspection, full ROM and capillary refill normal Psych Appearance: grossly normal Mental Status: mental status grossly normal Speech and Movement: speech and movement normal Affect: normal affect Thought Process: normal Course Vital Signs Vital signs: Vital Signs Temperature 97.2 F L 06/27/21 10:05 Pulse 100 H 06/27/21 10:05 Respiratory Rate 16 06/27/21 10:05 Blood Pressure 158/98 H 06/27/21 10:05 Pulse Oximetry 96 06/27/21 10:05 Temperature 97.2 F L 06/27/21 10:05 Pulse 100 H 06/27/21 10:05 Respiratory Rate 16 06/27/21 10:05 Respiratory Effort 06/27/21 10:11 Blood Pressure 158/98 H 06/27/21 10:05 Blood Pressure Position Supine 06/27/21 10:05 Pulse Oximetry 96 06/27/21 10:05 Oxygen Delivery Method Room Air 06/27/21 10:05 Oxygen Flow Rate 0 06/27/21 10:05 Pain Level 0 06/27/21 10:05
--- NOTE | 2021-06-27 10:30 | NUR.NOTE ---
Nursing Note: Referral given to Care Management needs PCP, re-evaluate for OD, establish care within 2 weeks. CRISTINA
--- NOTE | 2021-06-27 10:46 | NUR.NOTE ---
pt denies SI/HI
--- NOTE | 2021-06-28 09:35 | PDOC.ERCMACT ---
- If Service Date Differs Date of service: 06/28/21 Time of Service: 09:35 Care Management Activity Note Earl is seen in the ED for an overdose of fentanyl and respiratory arrest. At the request of ED provider, [facility]WOT coordinates a referral to RACHID Watkins, of [facility], on-call provider, to assist Earl in obtaining a follow up appointment and in establishing care with a PCP. He has Medicaid for insurance.
== END 2021-06-27 10:33 | disposition left against medical advice (07) ==
PROVIDERS: Emergency Provider Physician Assistant
DX: T40.411A Poisoning by fentanyl or fentanyl analogs, accidental (unintentional), initial encounter (principal); R40.4 Transient alteration of awareness; Z53.29 Procedure and treatment not carried out because of patient's decision for other reasons
CPT/HCPCS: 99283

== ENCOUNTER 2021-08-25 17:55 | Inpatient (IN) | payer MEDICAID, SELFPAY ==
[2021-08-25 18:02] VITALS: BP 146/70; PULSE 85; RESP 18; TEMP 37.8; O2SAT 80
--- NOTE | 2021-08-25 18:15 | DI.CT_ITS ---
Exam(s) CT PELVIC W EXAM: CT PELVIC W CLINICAL HISTORY: cellulitis glute, question abscess. TECHNIQUE: Imaging Protocol: Axial computed tomography images with coronal and sagittal reformatted images were created and reviewed CONTRAST MATERIAL: Intravenous: Omnipaque 100cc Oral: None COMPARISON: CR,XR XR FOOT LT COMPLETE from 06/20/2020 FINDINGS: PELVIS: There is abundant abnormal subcutaneous fat streaking over the entire right buttock. No drainable ab scess. No gas in the soft tissues. The fat plane between the deep fat and the gluteus deepak muscl e is somewhat indistinct. There is no obvious skin ulcer nor radiopaque foreign body. No laceration evident. OSSEOUS:No pelvic or hip fractures evident. No significant osseous lesions.No evidence of osteomyeli tis. ANTERIOR ABDOMINAL WALL/GI:No evidence of bowel obstruction. No evidence of appendicitis.No evidence of sigmoid diverticulitis. LYMPH NODES: There is no intrapelvic nor inguinal adenopathy. REPRODUCTIVE: Prostate and seminal vesicles unremarkable. URINARY BLADDER: No calculi nor obvious masses evident IMPRESSION: 1. There is prominent abnormal stranding in the posterior subcutaneous fat tissues over the right glu teal region extending up to the L5 level. There is also loss of fat plane between this stranding and the subjacent gluteal musculature. There is no obvious drainable fluid collection. No soft tissue gas seen. No radiopaque foreign body. Close follow-up is recommended. 2. Soft tissue stranding approaches the coccyx, however, there is no evidence of osteomyelitis on CT scan. RADIATION DOSE DELIVERED: 287mGy.cm Total DLP DATA REPOSITORY: All CT scans at this facility are submitted to the National Radiology Data Registry (NRDR) Dose Index Registry (DIR) with the [employer] ([employer]). RADIATION OPTIMIZATION: All CT scans at this facility use at least one of these dose optimization te chniques: automated exposure control; mA and/or kV adjustment per patient size (includes targeted exa ms where dose is matched to clinical indication); or iterative reconstruction.
[2021-08-25 19:13] LABS: Lactate 0.7 mmol/L (0.6-1.4)
[2021-08-25 19:14] LABS: Abs Immature Grans 0.05 10^3/uL (0.0-0.06); Absolute Basophil Count 0.08 10^3/uL (0.0-0.2); Absolute Eosinophil Count 0.28 10^3/uL (0.0-0.7); Absolute Lymphocyte Count 2.02 10^3/uL (1.2-3.4); Absolute Monocyte Count 1.48 10^3/uL (0.1-0.8); Absolute Neutrophil Count 11.84 10^3/uL (1.2-6.7); Basophils % 0.5; Eosinophils % 1.8; HGB 13.1 g/dL (13.5-17.5); Immature Grans % 0.3; Lymphocytes % 12.8; MCH 29.8 pg (27.0-33.0); MCHC 34.5 % (32.0-36.0); MCV 86 fL (80-95); MPV 10.5 fL (8.0-11.0); Monocytes % 9.4; Neutrophils % 75.2; Platelet Count 182 10^3/uL (130-400); RDW-SD 41.3 fL; WBC 15.75 10^3/uL (4.4-10.8)
[2021-08-25] MEDS: PIPERACILLIN/TAZO 3.375 GM in Normal Saline 50 ML IVPB (19:22)
[2021-08-25 19:26] VITALS: BP 115/68; PULSE 88; RESP 18; O2SAT 94
[2021-08-25 19:34] LABS: ALT 33 U/L (16-63); AST 24 U/L (15-37); Albumin 3.6 g/dL (3.4-5.0); Alkaline Phosphatase 79 U/L (46-116); Anion Gap 7.4 mmol/L (3-11); BUN 11 mg/dL (7-18); Bilirubin, Total 0.6 mg/dL (0.2-1.0); CO2 28.6 mmol/L (21.0-32.0); Chloride 98 mmol/L (98-107); Glucose 113 mg/dL (74-106); Magnesium 1.8 mg/dL (1.8-2.4); Sodium 134 mmol/L (136-145); Total Protein 7.7 g/dL (6.4-8.2); Troponin I < 50 ng/L (<or=60)
[2021-08-25] MEDS: Omnipaque 350 MG/ML 100 ML BTL IJ (19:38)
--- NOTE | 2021-08-25 20:44 | DI.VRAD_ITS ---
Addendum created by Lidya Casillas MD on 08/25/2021 8:47:41 PM EDT: THIS REPORT CONTAINS FINDINGS THAT MAY BE CRITICAL TO PATIENT CARE. The findings were verbally communicated via telephone conference with Soraida Beckford at 8:47 PM EDT on 08/25/2021. The findings were acknowledged and understood. Initial report created on 08/25/2021 8:43:53 PM EDT: PROCEDURE INFORMATION: Exam: CT Pelvis With Contrast Exam date and time: 08/25/2021 7:34 PM Age: 25 years old Clinical indication: Other: Cellulitis glute, question abscess TECHNIQUE: Imaging protocol: Computed tomography of the pelvis with contrast. Radiation optimization: All CT scans at this facility use at least one of these dose optimization techniques: automated exposure control; mA and/or kV adjustment per patient size (includes targeted exams where dose is matched to clinical indication); or iterative reconstruction. Contrast material: OMNI 350; Contrast volume: 100 ml; Contrast route: INTRAVENOUS (IV); COMPARISON: No relevant prior studies available. FINDINGS: Stomach and bowel: There is a small bowel intussusception in the left lower quadrant on series 4, image 23 with some wall thickening of the bowel just adjacent to the intussusceptum. It should be noted that intussusceptions could be transient or associated with a lead point such as a lesion. Appendix: No evidence of appendicitis. Intraperitoneal space: Unremarkable. No free air. No significant fluid collection. Lymph nodes: There is right groin lymph node prominence/mild enlargement. This is favored to be reactive. Urinary bladder: The internal contents of the urinary bladder measure greater than water density. Components of blood or infection are not excluded. Reproductive: Normal as visualized. Bones/joints: Scattered sclerotic foci in the bones. In the absence of known malignancy, these most likely represent bone islands. No acute fracture. No dislocation. Soft tissues: There is stranding in the posterior subcutaneous soft tissues of the right gluteal region which extends superiorly and medially to the level of the L5 vertebral body. There is a loss of fat plane between this stranding and the adjacent gluteal musculature/coccyx for which a component muscular infection or osteomyelitis is not excluded. There is no discrete rounded fluid collection to suggest abscess. No gas is identified. However, it should be noted that the absence of gas does not exclude necrotizing infection/necrotizing fasciitis. IMPRESSION: 1. There is stranding in the posterior subcutaneous soft tissues of the right gluteal region which extends superiorly and medially to the level of the L5 vertebral body. There is a loss of fat plane between this stranding and the adjacent gluteal musculature/coccyx for which a component muscular infection or osteomyelitis is not excluded. There is no discrete rounded fluid collection to suggest abscess. No gas is identified. However, it should be noted that the absence of gas does not exclude necrotizing infection/necrotizing fasciitis. 2.There is a small bowel intussusception in the left lower quadrant on series 4, image 23 with some wall thickening of the bowel just adjacent to the intussusceptum. It should be noted that intussusceptions could be transient or associated with a lead point such as a lesion. Clinical correlation with pain and symptomatology recommended. Surgical consult could be considered. Short-term follow-up imaging could also be considered. 3. Right groin lymph node prominence/mild enlargement. This is favored to be reactive. 4. The internal contents of the urinary bladder measure greater than water density. Components of blood or infection are not excluded. Other findings/details as above. Dictated and Authenticated by: Lidya Casillas MD. Ordering:ALYSSIA Quigley MD
[2021-08-25 21:17] LABS: Source Nasal/Nares
[2021-08-25] MEDS: Nicotine 21 MG/24 HR PATCH TD (21:38)
[2021-08-25] MEDS: VANCOMYCIN 2,000 MG in Normal Saline 500 ML 250 MG IVPB (21:40)
[2021-08-25 22:07] LABS: COVID-19 PCR Negative (Negative)
--- NOTE | 2021-08-25 22:31 | ED.GENADUL_ITS ---
Discharge Plan Disposition Patient Disposition: [facility] INPATIENT Condition: Stable Discharge Details Clinical Impression: Cellulitis of buttock, right Admit Date/Time: 08/26/21 00:55 Admit Provider: Francisco Leahy Attending Provider: Francisco Leahy Primary Care Provider: Unknown,Unknown ED Provider: Soraida Beckford Discharge Data Discharge Date/Time-TO BE ENTERED AT DEPARTURE: 08/26/21 01:24 Medical Decision Making Given severity of cellulitis versus abscess, CT scan, diagnostic labs were ordered, there is a large area of cellulitis with possible extension into muscle on CT scan Patient was made aware regarding this finding Given that extensive cellulitis and patient's history of IV drug abuse I think he should be admitted at this time There is no obvious abscess although I did consult surgery abdomen CT scan there is an area of possible intussusception and Dr. Jewell, surgery does not feel though this is a true intussusception this patient is a completely nontender abdominal exam, there is no vomiting And I suspect this is normal peristalsis that was called CT scan Therefore we will not investigate this further at this time as patient becomes symptomatic He was initially on Vanco and Zosyn Dr. Leahy will admit patient to his service Medical Records Medical records reviewed: Yes I reviewed the patient's medical records. Lab Data Lab results reviewed: Yes I reviewed the patient's lab results. HPI General Date/Time Provider Initiated Documentation: 08/25/21 18:11 . HPI Narrative: Very pleasant 25-year-old male with right gluteal cellulitis versus abscess that started 3 days ago. Of note, patient is an IV drug user and although he is on methadone has not used as recently as 1 week ago. denies injecting in this area. He states he is in significant pain and is unable to sit secondary to discomfort. He had chills but denies fever. He did take ibuprofen and Tylenol approximately 2 hours prior to arrival. Related Data Home Medications Medication Instructions Recorded Confirmed methadone 10 mg/5 mL oral solution 88 mg PO DAILY 08/25/21 08/25/21 sulfamethoxazole 800 2 tab PO BID #14 tabs 08/28/21 mg-trimethoprim 160 mg tablet (Bactrim DS) Previous Rx's Medication Instructions Recorded sulfamethoxazole 800 2 tab PO BID #14 tabs 08/28/21 mg-trimethoprim 160 mg tablet (Bactrim DS) Allergies Allergy/AdvReac Type Severity Reaction Status Date / Time No Known Allergies Allergy Unverified 08/25/21 18:08 General Stated Complaint: Cellulitis DERIC: 3 Review of Systems All systems reviewed & are unremarkable except as noted in HPI and below PFSH All Active Problems (Updated 08/30/21 @ 09:02 by DWIGHT Lazcano) Pain (Acute) Tobacco dependence (Chronic) Cellulitis of buttock, right (Acute) Contusion of foot (Acute) Foot swelling (Acute) Medical History Opioid dependence in remission Vitiligo Surgical History No significant past surgical history Family History Mother Essential hypertension Depression Father No problems noted. Sister Essential hypertension Sister No problems noted. Brother No problems noted. FAMILY HISTORY Substance abuse Alcohol abuse Essential hypertension Depression Social History Smoking/Tobacco Use Status: Current every day Tobacco Type: cigarettes Smoking risk assessment performed?: Yes Alcohol Intake: current Alcohol Intake frequency: holidays/special occasions only Drug use: Daily Substance use type: marijuana and opiates Do you feel safe at home: Yes Do you feel safe in your relationship?: Yes Exam Const General: cooperative and no acute distress Resp Effort & Inspection: normal respiratory effort Cardio Rate: regular rate Skin General skin exam: no rashes or lesions noted Neuro General: patient alert and patient oriented x3 Extrem Upper/lower leg/hip images: 1. erythematous with induration, no fluctuance no crepitus neurovascularly intact Course Vital Signs Vital signs: Vital Signs Temperature 37.8 C H 08/25/21 18:02 Pulse 85 08/25/21 18:02 Respiratory Rate 18 08/25/21 18:02 Blood Pressure 146/70 H 08/25/21 18:02 Pulse Oximetry 80 L 08/25/21 18:02 Temperature 37.8 C H 08/25/21 18:02 Temperature Source Tympanic 08/25/21 18:02 Pulse 88 08/25/21 19:26 Respiratory Rate 18 08/25/21 19:26 Respiratory Effort 08/25/21 18:16 Blood Pressure 115/68 08/25/21 19:26 Blood Pressure Position Sitting 08/25/21 18:02 Pulse Oximetry 94 08/25/21 19:26 Oxygen Delivery Method Room Air 08/25/21 19:26 Oxygen Flow Rate 0 08/25/21 19:26 Lab/Test Results Lab/Test Results: 08/25/21 18:18 Blood Blood Culture - Pending 08/25/21 19:00 Blood Blood Culture - Pending Laboratory Tests Range/Units 08/25/21 08/25/21 08/25/21 19:00 19:00 19:00 WBC (4.4-10.8) 10^3/uL 15.75 H RBC (4.36-5.78) 10^6/uL 4.40 Hgb (13.5-17.5) g/dL 13.1 L Hct (40.0-50.0) % 38.0 L MCV (80-95) fL 86 MCH (27.0-33.0) pg 29.8 MCHC (32.0-36.0) % 34.5 RDW (11.8-14.1) % 13.0 Plt Count (130-400) 10^3/uL 182 MPV (8.0-11.0) fL 10.5 Immature Gran % 0.3 Neutrophils % 75.2 Lymphocytes % 12.8 Monocytes % 9.4 Eosinophils % 1.8 Basophils % 0.5 Nucleated RBC % (0.0-0.3) % 0.0 Absolute Neutrophils (1.2-6.7) 10^3/uL 11.84 H Absolute Lymphocytes (1.2-3.4) 10^3/uL 2.02 Absolute Monocytes (0.1-0.8) 10^3/uL 1.48 H Absolute Eosinophils (0.0-0.7) 10^3/uL 0.28 Absolute Basophils (0.0-0.2) 10^3/uL 0.08 VBG Lactate (0.6-1.4) mmol/L 0.7 Sodium (136-145) mmol/L 134 L Potassium (3.5-5.1) mmol/L 4.0 Chloride (98-107) mmol/L 98 Carbon Dioxide (21.0-32.0) mmol/L 28.6 Anion Gap (3-11) mmol/L 7.4 BUN (7-18) mg/dL 11 Creatinine (0.70-1.30) mg/dL 1.0 Estimated GFR/1.73 m2 (mL/min/1.73m2) >= 60.00 Glucose (74-106) mg/dL 113 H Calcium (8.5-10.1) mg/dL 9.0 Magnesium (1.8-2.4) mg/dL 1.8 Total Bilirubin (0.2-1.0) mg/dL 0.6 AST (15-37) U/L 24 ALT (16-63) U/L 33 Alkaline Phosphatase (46-116) U/L 79 Troponin I (<or=60) ng/L < 50 Total Protein (6.4-8.2) g/dL 7.7 Albumin (3.4-5.0) g/dL 3.6 COVID-19 Source SARS-CoV-2 (PCR) (Negative) Range/Units 08/25/21 08/25/21 21:15 21:30 WBC (4.4-10.8) 10^3/uL RBC (4.36-5.78) 10^6/uL Hgb (13.5-17.5) g/dL Hct (40.0-50.0) % MCV (80-95) fL MCH (27.0-33.0) pg MCHC (32.0-36.0) % RDW (11.8-14.1) % Plt Count (130-400) 10^3/uL MPV (8.0-11.0) fL Immature Gran % Neutrophils % Lymphocytes % Monocytes % Eosinophils % Basophils % Nucleated RBC % (0.0-0.3) % Absolute Neutrophils (1.2-6.7) 10^3/uL Absolute Lymphocytes (1.2-3.4) 10^3/uL Absolute Monocytes (0.1-0.8) 10^3/uL Absolute Eosinophils (0.0-0.7) 10^3/uL Absolute Basophils (0.0-0.2) 10^3/uL VBG Lactate (0.6-1.4) mmol/L Sodium (136-145) mmol/L Potassium (3.5-5.1) mmol/L Chloride (98-107) mmol/L Carbon Dioxide (21.0-32.0) mmol/L Anion Gap (3-11) mmol/L BUN (7-18) mg/dL Creatinine (0.70-1.30) mg/dL Estimated GFR/1.73 m2 (mL/min/1.73m2) Glucose (74-106) mg/dL Calcium (8.5-10.1) mg/dL Magnesium (1.8-2.4) mg/dL Total Bilirubin (0.2-1.0) mg/dL AST (15-37) U/L ALT (16-63) U/L Alkaline Phosphatase (46-116) U/L Troponin I (<or=60) ng/L Cancelled Total Protein (6.4-8.2) g/dL Albumin (3.4-5.0) g/dL COVID-19 Source Nasal/Nares SARS-CoV-2 (PCR) (Negative) Negative
--- NOTE | 2021-08-25 23:32 | W.SURGCON ---
Date of service: 08/25/21 Time of Service: 23:35 Assessment and Plan Assessment and plan (1) Cellulitis of buttock, right: Status: Acute Assessment and plan: His physical exam is most consistent with severe cellulitis. Certainly, the CT findings raise a concern for a deeper and advanced infection. However, the external features are not consistent with necrotizing fasciitis at this time. I think it is reasonable to start with intravenous antibiotics and reassess the erythema over the next 12 to 24 hours. If he develops any fluctuance, then we can move towards operative drainage. However, thus far, I think this is restricted to the skin and subcutaneous fat. Incidentally, the CT scan demonstrates a short segment small bowel intussusception. He has no abdominal complaints, and his abdominal exam is totally normal. I suspect this is normal peristalsis and does not represent any worrisome pathology. History of Present Illness Narrative: Earl is a 25-year-old male who presents to the emergency department with right-sided buttock pain. He says this started as some kind of a wound on his buttock, which he thinks started around 4 to 5 days ago. He does not have very good insight as to the details of the history of the problem. He does report that he had increasing pain throughout yesterday and today, not high came to the emergency department. He says the pain is mostly limited to his buttock. It does not radiate. He cannot bear weight on his buttock. Pain is exacerbated with ambulation. There are no particular relieving factors. His past medical history that is most relevant is severe intravenous opioid abuse. Consults Consult date: 08/25/21 Review of Systems Constitutional Constitutional: Reports body ache(s), Reports fatigue, Reports fever(s) and Denies frequent falls Eyes Eyes: Reports system reviewed and no additional complaints, except as documented ENT Ears, Nose, Mouth, and Throat: Denies dysphagia, Reports dizziness, Denies hoarseness and Denies nasal congestion Cardiovascular Cardiovascular: Denies chest pain and Denies dyspnea Respiratory Respiratory: Reports cough and Denies dyspnea Gastrointestinal Gastrointestinal: Denies abdominal pain, Denies bloating, Denies change in bowel habits, Reports cramping, Denies dysphagia and Denies vomiting Genitourinary Genitourinary: Reports system reviewed and no additional complaints, except as documented Musculoskeletal Musculoskeletal: Reports back pain and Reports myalgias Neurologic Neurologic: Reports dizziness, Denies frequent falls and Denies paresthesias Psychiatric Psychiatric: Reports anxiety Endocrine Endocrine: Reports fatigue Hematologic/Lymphatic Hematologic/Lymphatic: Denies easy bleeding and Denies easy bruising PFSH All Active Problems (Updated 08/25/21 @ 23:51 by Narciso Jewell MD) Cellulitis of buttock, right (Acute) Contusion of foot (Acute) Foot swelling (Acute) Medical History Vitiligo Surgical History No significant past surgical history Family History Mother Essential hypertension Depression Father No problems noted. Sister Essential hypertension Sister No problems noted. Brother No problems noted. FAMILY HISTORY Substance abuse Alcohol abuse Essential hypertension Depression Social History Smoking/Tobacco Use Status: Current every day Tobacco Type: cigarettes Smoking risk assessment performed?: Yes Alcohol Intake: current Alcohol Intake frequency: holidays/special occasions only Drug use: Daily Substance use type: marijuana and opiates Do you feel safe at home: Yes Do you feel safe in your relationship?: Yes Exam Const General: cooperative, no acute distress and disheveled Nutritional Appearance: malnourished Orientation: alert, awake and oriented x3 HENMT Head: normal to inspection Eyes General: appearance normal, both eyes and all related structures Neck Neck: normal visual inspection, no lymphadenopathy and trachea midline Thyroid: thyroid normal Chest Chest: normal inspection of the chest Resp Effort & Inspection: normal respiratory effort, no audible wheezes and no stridor Auscultation: bronchial breath sounds Cardio Rate: regular rate Pulses: radial pulses present, femoral pulses present and posterior tibial pulses present GI Inspection: normal to inspection Palpation: soft, no guarding, no hernias and nontender Percussion: normal to percussion Auscultation: normal bowel sounds Other: His right buttock is swollen, erythematous, and a bit indurated. I do not feel any fluctuance. There are no bullae. He is got no inguinal lymphadenopathy. Back/Spine/Pelvis Back: no CVA tenderness Pelvis: buttock tenderness (Right buttock is tender) and buttock swelling Back/spine/pelvis image: 1. tender erythema consistent with cellulitis Skin General skin exam: other (Vitiligo) Lesions: lesion noted (Skin popping) Upper and lower extremities Neuro General: patient alert, patient awake and moves all extremities Cognition: abnormal cognition Speech: speech normal Sensory Exam: lower extremity not examined and perineum not examined Extrem General: normal to inspection Right upper extremity: no edema Left upper extremity: no edema Right lower extremity: no edema Left lower extremity: no edema Psych Appearance: disheveled Speech and Movement: speech and movement normal Affect: blunted Attitude: cooperative Thought Process: normal Results Last Vital Signs Temp 100.0 F H 08/25/21 18:02 Pulse 88 08/25/21 19:26 Resp 18 08/25/21 19:26 BP 115/68 08/25/21 19:26 Pulse Ox 94 08/25/21 19:26 Labs Result diagrams: 08/25/21 19:00 08/25/21 19:00 Labs: Laboratory Results - last 24 hr 08/25/21 08/25/21 08/25/21 19:00 19:00 19:00 WBC 15.75 H RBC 4.40 Hgb 13.1 L Hct 38.0 L MCV 86 MCH 29.8 MCHC 34.5 RDW 13.0 Plt Count 182 MPV 10.5 Immature Gran % 0.3 Neutrophils % 75.2 Lymphocytes % 12.8 Monocytes % 9.4 Eosinophils % 1.8 Basophils % 0.5 Nucleated RBC % 0.0 Absolute Neutrophils 11.84 H Absolute Lymphocytes 2.02 Absolute Monocytes 1.48 H Absolute Eosinophils 0.28 Absolute Basophils 0.08 VBG Lactate 0.7 Sodium 134 L Potassium 4.0 Chloride 98 Carbon Dioxide 28.6 Anion Gap 7.4 BUN 11 Creatinine 1.0 Estimated GFR/1.73 m2 >= 60.00 Glucose 113 H Calcium 9.0 Magnesium 1.8 Total Bilirubin 0.6 AST 24 ALT 33 Alkaline Phosphatase 79 Troponin I < 50 Total Protein 7.7 Albumin 3.6 COVID-19 Source SARS-CoV-2 (PCR) 08/25/21 08/25/21 21:15 21:30 WBC RBC Hgb Hct MCV MCH MCHC RDW Plt Count MPV Immature Gran % Neutrophils % Lymphocytes % Monocytes % Eosinophils % Basophils % Nucleated RBC % Absolute Neutrophils Absolute Lymphocytes Absolute Monocytes Absolute Eosinophils Absolute Basophils VBG Lactate Sodium Potassium Chloride Carbon Dioxide Anion Gap BUN Creatinine Estimated GFR/1.73 m2 Glucose Calcium Magnesium Total Bilirubin AST ALT Alkaline Phosphatase Troponin I Cancelled Total Protein Albumin COVID-19 Source Nasal/Nares SARS-CoV-2 (PCR) Negative
[2021-08-26] VITALS (9 sets, daily range): BP systolic 112–141; BP diastolic 50–71; PULSE 65–80; RESP 16–18; TEMP 35.9–37.9; O2SAT 94–98
[2021-08-26] MEDS: Ketorolac 15 MG/ML VIAL IVP ×3 (00:07→20:17)
--- NOTE | 2021-08-26 00:40 | W.PM.HP.N ---
Date of service: 08/25/21 Time of Service: 23:30 Assessment and Plan Assessment and plan (1) Cellulitis of buttock, right: Start date: 08/25/21 Status: Acute Assessment and plan: This is a 25-year-old gentleman with history of IV drug use and opioid addiction on methadone chronically presents with swollen, erythematous and hot to touch area over right buttock which progressed after patient attempted to drain pimple over the same area. Patient does appear to have excoriations and atrophic scars over most of his skin in the same area and may have neurotic dermatitis chronically. This would be a risk factor for infection of bacteria locally. (2) Opioid dependence in remission: Status: Chronic Assessment and plan: Patient will be maintained on present dose of methadone once this is confirmed with his methadone clinic. Pain management with Toradol. (3) Tobacco dependence: Status: Chronic Assessment and plan: NicoDerm patches and inhalers if needed. (4) Vitiligo: Assessment and plan: Patient does have diffuse hypopigmentation patches over his skin which are chronic and stable. This did not contribute to his active problem but to be added to his chronic problem list. History of Present Illness History of Present Illness Chief Complaint: Cellulitis right buttock Narrative: This is a 25-year-old male patient with a history of opioid abuse in remission on methadone but having some issues of IV drug use presenting to the ED with right buttock swelling and redness after attempting to drain an abscess by expressing a pimple. Has been on about 3 days but denies any fever or rigors but the swelling has worsened with redness and being hot to touch. He does have pain but it is all local and imaging in the ED along with surgical evaluation did not reveal necrotizing fasciitis as a presenting clinical picture but surgery has been consulted and will follow patient. It was started on vancomycin and Zosyn and was more comfortable at the time that I interviewed him. He gives minimal history which is vague. He appears to be bothered by being in the hospital and states that he does have NicoDerm patch but still has some craving for cigarettes. He is on minimal medications. His medical history is benign except for some skin disease with vitiligo which is diffuse. He has a full code. Review of Systems Narrative: 13 point review of systems is otherwise unrevealing or stable. PFSH All Active Problems (Updated 08/26/21 @ 16:57 by Francisco Leahy) Tobacco dependence (Chronic) Opioid dependence in remission (Chronic) Cellulitis of buttock, right (Acute) Contusion of foot (Acute) Foot swelling (Acute) Medical History Vitiligo Surgical History No significant past surgical history Family History Mother Essential hypertension Depression Father No problems noted. Sister Essential hypertension Sister No problems noted. Brother No problems noted. FAMILY HISTORY Substance abuse Alcohol abuse Essential hypertension Depression Social History Smoking/Tobacco Use Status: Current every day Tobacco Type: cigarettes Smoking risk assessment performed?: Yes Alcohol Intake: current Alcohol Intake frequency: holidays/special occasions only Drug use: Daily Substance use type: marijuana and opiates Do you feel safe at home: Yes Do you feel safe in your relationship?: Yes Meds Allergies and Home Medications Allergies Allergy/AdvReac Type Severity Reaction Status Date / Time No Known Allergies Allergy Unverified 08/25/21 18:08 Home Medications Medication Instructions Recorded Confirmed Type methadone 10 mg/5 mL oral solution 88 mg PO DAILY 08/25/21 08/25/21 History Exam Narrative Exam Narrative: General: Patient appears older than stated age, alert and oriented x3 with flattened affect and poor eye contact. He is in moderate distress from his right buttock discomfort lying on his left side. HEENT: Normocephalic, eyes with pupils equal and reactive light symmetrically, extraocular movement intact and sclera anicteric. Oropharynx with moist mucosa and poor dentition. Neck: Supple without JVD. Skin: Diffuse depigmentation and large patches consistent with vitiligo. Otherwise normal color, warm and dry. Erythema with multiple well-healed ulcers over buttock area and lower extremities in the thigh region with the atrophic scars consistent with neurotic dermatitis. Back: Stooped posture without CVA tenderness. Lung: Bronchovesicular breath sounds diffusely with rhonchi and coarse crackles which are nonfocal and partially clearing with cough. Fair aeration. Expiratory wheeze only with cough. Heart: Regular rate and rhythm with no murmurs or gallops appreciated. Abdomen: Scaphoid contour, soft and nontender to palpation with no palpable hepatosplenomegaly. Genitalia/rectal: Exam deferred. Extremities: Without clubbing, cyanosis or pitting edema. Right buttock has swelling with induration but no fluctuance and no pointing or drainage extending medially but not involving sacrum. Multiple skin lesions as described under skin. Peripheral pulses intact. Neuro: Cranial nerves II through XII intact, no focalizing motor deficits or tremor. Psych: Flattened affect with depressed mood. Poor eye contact. No abnormal thought processes. Remote and recent memory grossly intact. Results Imaging Imaging Studies: Exam: CT Pelvis With Contrast Exam date and time: 08/25/2021 7:34 PM Age: 25 years old Clinical indication: Other: Cellulitis glute, question abscess TECHNIQUE: Imaging protocol: Computed tomography of the pelvis with contrast. Radiation optimization: All CT scans at this facility use at least one of these dose optimization techniques: automated exposure control; mA and/or kV adjustment per patient size (includes targeted exams where dose is matched to clinical indication); or iterative reconstruction. Contrast material: OMNI 350; Contrast volume: 100 ml; Contrast route: INTRAVENOUS (IV);? COMPARISON: No relevant prior studies available. FINDINGS: Stomach and bowel:? There is a small bowel intussusception in the left lower quadrant on series 4, image 23 with some wall thickening of the bowel just adjacent to the intussusceptum.? It should be noted that intussusceptions could be transient or associated with a lead point such as a lesion.? Appendix: No evidence of appendicitis. Intraperitoneal space: Unremarkable. No free air. No significant fluid collection. Lymph nodes:? There is right groin lymph node prominence/mild enlargement. This is favored to be reactive. Urinary bladder:? The internal contents of the urinary bladder measure greater than water density. Components of blood or infection are not excluded. Reproductive: Normal as visualized. Bones/joints:? Scattered sclerotic foci in the bones. In the absence of known malignancy, these most likely represent bone islands. No acute fracture. No dislocation. Soft tissues:? There is stranding in the posterior subcutaneous soft tissues of the right gluteal region which extends superiorly and medially to the level of the L5 vertebral body. There is a loss of fat plane between this stranding and the adjacent gluteal musculature/coccyx for which a component muscular infection or osteomyelitis is not excluded. There is no discrete rounded fluid collection to suggest abscess.? No gas is identified.? However, it should be noted that the absence of gas does not exclude necrotizing infection/necrotizing fasciitis. IMPRESSION: 1.? There is stranding in the posterior subcutaneous soft tissues of the right gluteal region which extends superiorly and medially to the level of the L5 vertebral body. There is a loss of fat plane between this stranding and the adjacent gluteal musculature/coccyx for which a component muscular infection or osteomyelitis is not excluded. There is no discrete rounded fluid collection to suggest abscess.? No gas is identified.? However, it should be noted that the absence of gas does not exclude necrotizing infection/necrotizing fasciitis. 2.There is a small bowel intussusception in the left lower quadrant on series 4, image 23 with some wall thickening of the bowel just adjacent to the intussusceptum.? It should be noted that intussusceptions could be transient or associated with a lead point such as a lesion.? Clinical correlation with pain and symptomatology recommended. Surgical consult could be considered.? Short-term follow-up imaging could also be considered. 3. Right groin lymph node prominence/mild enlargement. This is favored to be reactive. 4. The internal contents of the urinary bladder measure greater than water density. Components of blood or infection are not excluded.? Other findings/details as above. Labs Result diagrams: 08/26/21 05:29 08/26/21 05:29 Labs: Laboratory Results - last 24 hr 08/25/21 08/25/21 08/25/21 19:00 19:00 19:00 WBC 15.75 H RBC 4.40 Hgb 13.1 L Hct 38.0 L MCV 86 MCH 29.8 MCHC 34.5 RDW 13.0 Plt Count 182 MPV 10.5 Immature Gran % 0.3 Neutrophils % 75.2 Lymphocytes % 12.8 Monocytes % 9.4 Eosinophils % 1.8 Basophils % 0.5 Nucleated RBC % 0.0 Absolute Neutrophils 11.84 H Absolute Lymphocytes 2.02 Absolute Monocytes 1.48 H Absolute Eosinophils 0.28 Absolute Basophils 0.08 VBG Lactate 0.7 Sodium 134 L Potassium 4.0 Chloride 98 Carbon Dioxide 28.6 Anion Gap 7.4 BUN 11 Creatinine 1.0 Estimated GFR/1.73 m2 >= 60.00 Glucose 113 H Calcium 9.0 Magnesium 1.8 Total Bilirubin 0.6 AST 24 ALT 33 Alkaline Phosphatase 79 Troponin I < 50 Total Protein 7.7 Albumin 3.6 COVID-19 Source SARS-CoV-2 (PCR) 08/25/21 08/25/21 21:15 21:30 WBC RBC Hgb Hct MCV MCH MCHC RDW Plt Count MPV Immature Gran % Neutrophils % Lymphocytes % Monocytes % Eosinophils % Basophils % Nucleated RBC % Absolute Neutrophils Absolute Lymphocytes Absolute Monocytes Absolute Eosinophils Absolute Basophils VBG Lactate Sodium Potassium Chloride Carbon Dioxide Anion Gap BUN Creatinine Estimated GFR/1.73 m2 Glucose Calcium Magnesium Total Bilirubin AST ALT Alkaline Phosphatase Troponin I Cancelled Total Protein Albumin COVID-19 Source Nasal/Nares SARS-CoV-2 (PCR) Negative Last Vital Signs Temp 37.8 C H 08/25/21 18:02 Pulse 88 08/25/21 19:26 Resp 18 08/25/21 19:26 BP 115/68 08/25/21 19:26 Pulse Ox 94 08/25/21 19:26
--- NOTE | 2021-08-26 01:19 | NUR.NOTE ---
Report called to Edel HUNT. Pt taken to room via w/cchi. Left with all belongings.
[2021-08-26] MEDS: PIPERACILLIN/TAZO 3.375 GM in Normal Saline 50 ML IVPB ×4 (02:39→20:10)
[2021-08-26] MEDS: Melatonin 3 MG TAB 9 MG PO ×2 (02:40→21:12)
[2021-08-26] MEDS: Normal Saline Flush 10 ML SYR IVP ×6 (02:40→20:17)
[2021-08-26 02:44] LABS: Bilirubin Negative (Negative); Blood Negative (Negative); Clarity Clear (Clear); Glucose Negative (Negative); Ketones Negative (Negative); Leukocyte Esterase Negative (Negative); Nitrite Negative (Negative); Specific Gravity 1.025 (1.005-1.025); pH 6.5 (5-8)
[2021-08-26 02:45] LABS: Bacteria Rare HPF (Negative); C & S Indicated? No; Casts Negative LPF (Negative); Crystals Negative HPF (Negative); Epithelial Cells Negative HPF (Negative); Mucus Moderate (Negative); RBC Negative HPF (0-2); WBC Negative HPF (0-5)
[2021-08-26 02:50] LABS: *AMPHETAMINES SCREEN URINE Negative (Negative); *BARBITURATES SCREEN URINE Negative (Negative); *BENZODIAZEPINES SCREEN URINE Negative (Negative); Cannabinoids THC Positive (Negative); Cocaine Screen,Urine Positive (Negative); METHADONE URINE SCREEN Positive (Negative); OPIATES URINE SCREEN Positive (Negative); Tricyclic Antidepressants Negative (Negative)
[2021-08-26 06:24] LABS: Abs Immature Grans 0.06 10^3/uL (0.0-0.06); Absolute Basophil Count 0.08 10^3/uL (0.0-0.2); Absolute Lymphocyte Count 1.71 10^3/uL (1.2-3.4); Basophils % 0.5; Eosinophils % 2.6; HCT 36.5 % (40.0-50.0); HGB 12.5 g/dL (13.5-17.5); Immature Grans % 0.4; Lymphocytes % 11.3; MCH 29.9 pg (27.0-33.0); MCHC 34.2 % (32.0-36.0); MCV 87 fL (80-95); MPV 10.9 fL (8.0-11.0); Monocytes % 11.2; Platelet Count 164 10^3/uL (130-400); RBC 4.18 10^6/uL (4.36-5.78); RDW 13.1 % (11.8-14.1); RDW-SD 41.9 fL; WBC 15.15 10^3/uL (4.4-10.8)
[2021-08-26 06:33] LABS: Absolute Eosinophil Count 0.39 10^3/uL (0.0-0.7)
[2021-08-26 06:34] LABS: Absolute Neutrophil Count 11.21 10^3/uL (1.2-6.7)
[2021-08-26 06:44] LABS: ALT 28 U/L (16-63); AST 17 U/L (15-37); Albumin 3.2 g/dL (3.4-5.0); Alkaline Phosphatase 75 U/L (46-116); Anion Gap 10.2 mmol/L (3-11); BUN 9 mg/dL (7-18); Bilirubin, Total 0.8 mg/dL (0.2-1.0); CO2 24.8 mmol/L (21.0-32.0); CREATININE 0.8 mg/dL (0.70-1.30); Calcium 8.8 mg/dL (8.5-10.1); Chloride 99 mmol/L (98-107); Glucose 90 mg/dL (74-106); Magnesium 1.9 mg/dL (1.8-2.4); Potassium 3.7 mmol/L (3.5-5.1); Sodium 134 mmol/L (136-145)
[2021-08-26 06:56] LABS: Diff Comment Diff Reviewed; RBC Morphology Normal
[2021-08-26 08:12] LABS: Lab Add On Test DONE
[2021-08-26 08:21] LABS: C-Reactive Protein 16.92 mg/dL (0.0-0.3)
[2021-08-26] MEDS: Methadone Liquid 10 MG/ML 88 MG PO (08:38)
[2021-08-26] MEDS: Acetaminophen 325 MG TAB 650 MG PO ×3 (08:45→21:12)
[2021-08-26 08:55] LABS: Procalcitonin 0.2 ng/mL
[2021-08-26] MEDS: VANCOMYCIN/WATER (PEG) 1.5 GM/300 ML BAG IV ×2 (09:46→17:23)
--- NOTE | 2021-08-26 10:16 | PGE_ITS ---
Date of Service Date of service: 08/26/21 Time of Service: 10:17 Assessment and Plan Assessment and plan (1) Cellulitis of buttock, right: Status: Acute Assessment and plan: Generally, I think the wound looks a small bit improved from last night. Certainly the erythema has improved. The seropurulent drainage is new however, and this may evolve into a small abscess that requires drainage. It is also reassuring that his leukocytosis is basically plateaued. Hopefully will start to resolve in the next day or so. I would continue with intravenous antibiotics for now. I would like to see how the buttock wound evolves over the next day or so. Subjective Subjective Interval history since last seen: Feels a bit ill with a general sense of malaise and not much appetite. He complains of pressure in the right buttock. He does think his symptoms are overall a bit better than yesterday. Exam Const General: cooperative and no acute distress Orientation: alert, awake and oriented x3 Back/Spine/Pelvis Pelvis: buttock tenderness and buttock swelling Other: The right buttock erythema has improved compared to last night. It is a little bit less tender. It is still quite indurated. There is a small amount of seropurulent fluid draining spontaneously more towards the middle or central portion of the wound. There is not much fluctuance. Objective Last Vital Signs Temp 99.1 F 08/26/21 07:21 Pulse 80 08/26/21 07:21 Resp 18 08/26/21 07:21 BP 119/68 08/26/21 07:21 Pulse Ox 96 08/26/21 07:21 Laboratory Results - last 24 hr 08/25/21 08/25/21 08/25/21 19:00 19:00 19:00 WBC 15.75 H RBC 4.40 Hgb 13.1 L Hct 38.0 L MCV 86 MCH 29.8 MCHC 34.5 RDW 13.0 Plt Count 182 MPV 10.5 Immature Gran % 0.3 Neutrophils % 75.2 Lymphocytes % 12.8 Monocytes % 9.4 Eosinophils % 1.8 Basophils % 0.5 Nucleated RBC % 0.0 Absolute Neutrophils 11.84 H Absolute Lymphocytes 2.02 Absolute Monocytes 1.48 H Absolute Eosinophils 0.28 Absolute Basophils 0.08 RBC Morphology VBG Lactate 0.7 Sodium 134 L Potassium 4.0 Chloride 98 Carbon Dioxide 28.6 Anion Gap 7.4 BUN 11 Creatinine 1.0 Estimated GFR/1.73 m2 >= 60.00 Glucose 113 H Calcium 9.0 Magnesium 1.8 Total Bilirubin 0.6 AST 24 ALT 33 Alkaline Phosphatase 79 Troponin I < 50 C-Reactive Protein Total Protein 7.7 Albumin 3.6 Procalcitonin Urine Color Urine Clarity Urine pH Ur Specific [place] Urine Protein Urine Ketones Urine Blood Urine Nitrite Urine Bilirubin Urine Urobilinogen Ur Leukocyte Esterase Urine RBC Urine WBC Ur Epithelial Cells Urine Crystals Urine Bacteria Urine Casts Urine Mucus Ur Culture Indicated? Urine Glucose Urine Opiates Screen Urine Methadone Screen Ur Barbiturates Screen Ur Tricyclics Screen Ur Amphetamines Screen U Benzodiazepines Scrn Urine Cocaine Screen Ur THC Screen COVID-19 Source SARS-CoV-2 (PCR) Add-On Test Request 08/25/21 08/25/21 08/26/21 21:15 21:30 02:13 WBC RBC Hgb Hct MCV MCH MCHC RDW Plt Count MPV Immature Gran % Neutrophils % Lymphocytes % Monocytes % Eosinophils % Basophils % Nucleated RBC % Absolute Neutrophils Absolute Lymphocytes Absolute Monocytes Absolute Eosinophils Absolute Basophils RBC Morphology VBG Lactate Sodium Potassium Chloride Carbon Dioxide Anion Gap BUN Creatinine Estimated GFR/1.73 m2 Glucose Calcium Magnesium Total Bilirubin AST ALT Alkaline Phosphatase Troponin I Cancelled C-Reactive Protein Total Protein Albumin Procalcitonin Urine Color Yellow Urine Clarity Clear Urine pH 6.5 Ur Specific [place] 1.025 Urine Protein Trace H Urine Ketones Negative Urine Blood Negative Urine Nitrite Negative Urine Bilirubin Negative Urine Urobilinogen 1.0 H Ur Leukocyte Esterase Negative Urine RBC Negative Urine WBC Negative Ur Epithelial Cells Negative Urine Crystals Negative Urine Bacteria Rare Urine Casts Negative Urine Mucus Moderate Ur Culture Indicated? No Urine Glucose Negative Urine Opiates Screen Urine Methadone Screen Ur Barbiturates Screen Ur Tricyclics Screen Ur Amphetamines Screen U Benzodiazepines Scrn Urine Cocaine Screen Ur THC Screen COVID-19 Source Nasal/Nares SARS-CoV-2 (PCR) Negative Add-On Test Request 08/26/21 08/26/21 08/26/21 02:13 05:29 05:29 WBC 15.15 H RBC 4.18 L Hgb 12.5 L Hct 36.5 L MCV 87 MCH 29.9 MCHC 34.2 RDW 13.1 Plt Count 164 MPV 10.9 Immature Gran % 0.4 Neutrophils % 74.0 Lymphocytes % 11.3 Monocytes % 11.2 Eosinophils % 2.6 Basophils % 0.5 Nucleated RBC % 0.0 Absolute Neutrophils 11.21 H Absolute Lymphocytes 1.71 Absolute Monocytes 1.70 H Absolute Eosinophils 0.39 Absolute Basophils 0.08 RBC Morphology Normal VBG Lactate Sodium 134 L Potassium 3.7 Chloride 99 Carbon Dioxide 24.8 Anion Gap 10.2 BUN 9 Creatinine 0.8 Estimated GFR/1.73 m2 >= 60.00 Glucose 90 Calcium 8.8 Magnesium 1.9 Total Bilirubin 0.8 AST 17 ALT 28 Alkaline Phosphatase 75 Troponin I C-Reactive Protein Total Protein 7.0 Albumin 3.2 L Procalcitonin Urine Color Urine Clarity Urine pH Ur Specific [place] Urine Protein Urine Ketones Urine Blood Urine Nitrite Urine Bilirubin Urine Urobilinogen Ur Leukocyte Esterase Urine RBC Urine WBC Ur Epithelial Cells Urine Crystals Urine Bacteria Urine Casts Urine Mucus Ur Culture Indicated? Urine Glucose Urine Opiates Screen Positive A Urine Methadone Screen Positive A Ur Barbiturates Screen Negative Ur Tricyclics Screen Negative Ur Amphetamines Screen Negative U Benzodiazepines Scrn Negative Urine Cocaine Screen Positive A Ur THC Screen Positive A COVID-19 Source SARS-CoV-2 (PCR) Add-On Test Request 08/26/21 08/26/21 08/26/21 05:30 05:30 05:30 WBC RBC Hgb Hct MCV MCH MCHC RDW Plt Count MPV Immature Gran % Neutrophils % Lymphocytes % Monocytes % Eosinophils % Basophils % Nucleated RBC % Absolute Neutrophils Absolute Lymphocytes Absolute Monocytes Absolute Eosinophils Absolute Basophils RBC Morphology VBG Lactate Sodium Potassium Chloride Carbon Dioxide Anion Gap BUN Creatinine Estimated GFR/1.73 m2 Glucose Calcium Magnesium Total Bilirubin AST ALT Alkaline Phosphatase Troponin I C-Reactive Protein 16.92 H Total Protein Albumin Procalcitonin 0.2 Urine Color Urine Clarity Urine pH Ur Specific [place] Urine Protein Urine Ketones Urine Blood Urine Nitrite Urine Bilirubin Urine Urobilinogen Ur Leukocyte Esterase Urine RBC Urine WBC Ur Epithelial Cells Urine Crystals Urine Bacteria Urine Casts Urine Mucus Ur Culture Indicated? Urine Glucose Urine Opiates Screen Urine Methadone Screen Ur Barbiturates Screen Ur Tricyclics Screen Ur Amphetamines Screen U Benzodiazepines Scrn Urine Cocaine Screen Ur THC Screen COVID-19 Source SARS-CoV-2 (PCR) Add-On Test Request DONE PAWSS Have you Been Recently Intoxicated or Drunk Within the Last 30 days?: Yes Have you Ever Experienced Previous Episodes of Alcohol Withdrawal?: Yes Have you ever Experienced Withdrawal Seizures?: No Have you ever Experienced Delirium Tremens(DT)s?: No Have you ever undergone Alcohol Rehabilitation Treatment (i.e, inpt ot outpatient treatment programs)?: Yes Have you ever Experienced Blackouts?: Yes Have you ever Combined Alcohol with other Downers within the last 90 days?: No Have you ever Combined Alcohol with any other Substance of Abuse during the last 90 days?: Yes Positive Blood Alcohol level on Presentation? [PCS.BAL]: No Evidence of Increased Autonomic Activity (i.e. HR>120, tremor, sweating, agitation, nausea)?: No Result: 6
--- NOTE | 2021-08-26 12:13 | PDOC.CMIN ---
- If Service Date Differs Date of service: 08/26/21 Time of Service: 12:14 Care Management Initial Assess REASON FOR HOSPITALIZATION:: Cellulitis Buttock PAST MEDICAL HISTORY/PAST SURGICAL HISTORY:: All Active Problems (Updated 08/26/21 @ 07:16 by Francisco Leahy). Tobacco dependence (Acute). Opioid dependence in remission (Acute). Cellulitis of buttock, right (Acute). Contusion of foot (Acute). Foot swelling (Acute). Medical History . Vitiligo. Surgical History . No significant past surgical history PREVIOUS FUNCTIONAL STATUS/SOCIAL/FAMILY SUPPORTS:: Earl is currently staying with his friend Jesus Manuel Olivares in [facility]. He is working on getting his own one bed room appartment. He does not have a car, and uses the [employer] shuttle routinely for transportation. Earl is unable to identify any supportive family and shares that his mother was killed a few years ago after being struck by a drunk batch mixing truck driver. Earl receives substance abuse treatment through [facility]. He identifies his [employer]ker through [facility] (Yue Osuna) as being his main community support. Earl is independent at baseline. CURRENT FUNCTIONAL STATUS:: Earl ws lying in bed when met with him. He is alert, oriented and appropriate. ADVANCE DIRECTIVES:: None on file Has patient been provided with info about the portal/API?: Yes Did the patient sign up for the portal?: No CODE STATUS:: Full Code INSURANCE COVERAGE / FINANCIAL ISSUES:: Medicaid CURRENT HOME/COMMUNITY SERVICES/EQUIPMENT:: [facility] (CM is Yue Osuna). Uses [facility] PRIMARY CARE PHYSICIAN:: None, will follow up with T Tima. POTENTIAL DISCHARGE NEEDS:: Last dose letter for [facility]. Follow up appointments. Discharge plan of care PATIENT/FAMILY EDUCATION NEEDS:: Review discharge instructions, limitations, medications and plan to follow up with community providers. ask me three. TRANSPORTATION:: [facility] PLAN:: Anticipate, Earl will discharge back to his friend Jesus Manuel's house when medically ready. He will follow up with community providers and discharge plan of care as precribed. He will transport via [facility].
--- NOTE | 2021-08-26 16:57 | PGE_ITS ---
Date of Service Date of service: 08/26/21 Time of Service: 16:57 Assessment and Plan Assessment and plan (1) Cellulitis of buttock, right: Start date: 08/25/21 Status: Acute Assessment and plan: Continue empiric vancomycin/zosyn. In setting of h/o IVD use. Blood cultures pending. No clinical evidence of necrotizing fasciitis. Suspect that the patient might be developing an abscess. Will add warm compresses to help it mature. Current pain management adequate. (2) Opioid dependence in remission: Status: Chronic Assessment and plan: Continue outpatient methadone. Dose verified with [facility] by pharmacy. (3) Tobacco dependence: Status: Chronic Assessment and plan: The patient elected to trial nicotrol inhaler, but noticed no effect from it. He is currently declining any other form of nicotine replacement, but will let me know if he would like something else. (4) Vitiligo: Assessment and plan: F/u as outpatient. (5) DVT prophylaxis: Status: Acute Assessment and plan: SCDs Chemical DVT ppx not required in a 25 year old ambulatory patient. (6) Discharge planning issues: Status: Acute Assessment and plan: Full code Continues to require hospitalization. Subjective Subjective Interval history since last seen: Mr Garcia states he is feeling a little better. His pain is controlled. He denies any sx of withdrawal. Denies chest pain, shortness of breath, nausea. Exam Narrative Exam Narrative: General: Pleasant male, resting in bed, wakes up easily, A&Ox3, NAD HEENT: EOMI, MMM Heart: RRR, no m/r/g Lungs: CTAB Abdomen: soft, nontender, nondistended Extremities: R buttock with erythema and induration. Objective Last Vital Signs Temp 37.9 C H 08/26/21 15:51 Pulse 77 08/26/21 15:51 Resp 18 08/26/21 15:51 BP 124/55 L 08/26/21 15:51 Pulse Ox 98 08/26/21 15:51 Laboratory Results - last 24 hr 08/25/21 08/25/21 08/25/21 19:00 19:00 19:00 WBC 15.75 H RBC 4.40 Hgb 13.1 L Hct 38.0 L MCV 86 MCH 29.8 MCHC 34.5 RDW 13.0 Plt Count 182 MPV 10.5 Immature Gran % 0.3 Neutrophils % 75.2 Lymphocytes % 12.8 Monocytes % 9.4 Eosinophils % 1.8 Basophils % 0.5 Nucleated RBC % 0.0 Absolute Neutrophils 11.84 H Absolute Lymphocytes 2.02 Absolute Monocytes 1.48 H Absolute Eosinophils 0.28 Absolute Basophils 0.08 RBC Morphology VBG Lactate 0.7 Sodium 134 L Potassium 4.0 Chloride 98 Carbon Dioxide 28.6 Anion Gap 7.4 BUN 11 Creatinine 1.0 Estimated GFR/1.73 m2 >= 60.00 Glucose 113 H Calcium 9.0 Magnesium 1.8 Total Bilirubin 0.6 AST 24 ALT 33 Alkaline Phosphatase 79 Troponin I < 50 C-Reactive Protein Total Protein 7.7 Albumin 3.6 Procalcitonin Urine Color Urine Clarity Urine pH Ur Specific [place] Urine Protein Urine Ketones Urine Blood Urine Nitrite Urine Bilirubin Urine Urobilinogen Ur Leukocyte Esterase Urine RBC Urine WBC Ur Epithelial Cells Urine Crystals Urine Bacteria Urine Casts Urine Mucus Ur Culture Indicated? Urine Glucose Urine Opiates Screen Urine Methadone Screen Ur Barbiturates Screen Ur Tricyclics Screen Ur Amphetamines Screen U Benzodiazepines Scrn Urine Cocaine Screen Ur THC Screen COVID-19 Source SARS-CoV-2 (PCR) Add-On Test Request 08/25/21 08/25/21 08/26/21 21:15 21:30 02:13 WBC RBC Hgb Hct MCV MCH MCHC RDW Plt Count MPV Immature Gran % Neutrophils % Lymphocytes % Monocytes % Eosinophils % Basophils % Nucleated RBC % Absolute Neutrophils Absolute Lymphocytes Absolute Monocytes Absolute Eosinophils Absolute Basophils RBC Morphology VBG Lactate Sodium Potassium Chloride Carbon Dioxide Anion Gap BUN Creatinine Estimated GFR/1.73 m2 Glucose Calcium Magnesium Total Bilirubin AST ALT Alkaline Phosphatase Troponin I Cancelled C-Reactive Protein Total Protein Albumin Procalcitonin Urine Color Yellow Urine Clarity Clear Urine pH 6.5 Ur Specific [place] 1.025 Urine Protein Trace H Urine Ketones Negative Urine Blood Negative Urine Nitrite Negative Urine Bilirubin Negative Urine Urobilinogen 1.0 H Ur Leukocyte Esterase Negative Urine RBC Negative Urine WBC Negative Ur Epithelial Cells Negative Urine Crystals Negative Urine Bacteria Rare Urine Casts Negative Urine Mucus Moderate Ur Culture Indicated? No Urine Glucose Negative Urine Opiates Screen Urine Methadone Screen Ur Barbiturates Screen Ur Tricyclics Screen Ur Amphetamines Screen U Benzodiazepines Scrn Urine Cocaine Screen Ur THC Screen COVID-19 Source Nasal/Nares SARS-CoV-2 (PCR) Negative Add-On Test Request 08/26/21 08/26/21 08/26/21 02:13 05:29 05:29 WBC 15.15 H RBC 4.18 L Hgb 12.5 L Hct 36.5 L MCV 87 MCH 29.9 MCHC 34.2 RDW 13.1 Plt Count 164 MPV 10.9 Immature Gran % 0.4 Neutrophils % 74.0 Lymphocytes % 11.3 Monocytes % 11.2 Eosinophils % 2.6 Basophils % 0.5 Nucleated RBC % 0.0 Absolute Neutrophils 11.21 H Absolute Lymphocytes 1.71 Absolute Monocytes 1.70 H Absolute Eosinophils 0.39 Absolute Basophils 0.08 RBC Morphology Normal VBG Lactate Sodium 134 L Potassium 3.7 Chloride 99 Carbon Dioxide 24.8 Anion Gap 10.2 BUN 9 Creatinine 0.8 Estimated GFR/1.73 m2 >= 60.00 Glucose 90 Calcium 8.8 Magnesium 1.9 Total Bilirubin 0.8 AST 17 ALT 28 Alkaline Phosphatase 75 Troponin I C-Reactive Protein Total Protein 7.0 Albumin 3.2 L Procalcitonin Urine Color Urine Clarity Urine pH Ur Specific [place] Urine Protein Urine Ketones Urine Blood Urine Nitrite Urine Bilirubin Urine Urobilinogen Ur Leukocyte Esterase Urine RBC Urine WBC Ur Epithelial Cells Urine Crystals Urine Bacteria Urine Casts Urine Mucus Ur Culture Indicated? Urine Glucose Urine Opiates Screen Positive A Urine Methadone Screen Positive A Ur Barbiturates Screen Negative Ur Tricyclics Screen Negative Ur Amphetamines Screen Negative U Benzodiazepines Scrn Negative Urine Cocaine Screen Positive A Ur THC Screen Positive A COVID-19 Source SARS-CoV-2 (PCR) Add-On Test Request 08/26/21 08/26/21 08/26/21 05:30 05:30 05:30 WBC RBC Hgb Hct MCV MCH MCHC RDW Plt Count MPV Immature Gran % Neutrophils % Lymphocytes % Monocytes % Eosinophils % Basophils % Nucleated RBC % Absolute Neutrophils Absolute Lymphocytes Absolute Monocytes Absolute Eosinophils Absolute Basophils RBC Morphology VBG Lactate Sodium Potassium Chloride Carbon Dioxide Anion Gap BUN Creatinine Estimated GFR/1.73 m2 Glucose Calcium Magnesium Total Bilirubin AST ALT Alkaline Phosphatase Troponin I C-Reactive Protein 16.92 H Total Protein Albumin Procalcitonin 0.2 Urine Color Urine Clarity Urine pH Ur Specific [place] Urine Protein Urine Ketones Urine Blood Urine Nitrite Urine Bilirubin Urine Urobilinogen Ur Leukocyte Esterase Urine RBC Urine WBC Ur Epithelial Cells Urine Crystals Urine Bacteria Urine Casts Urine Mucus Ur Culture Indicated? Urine Glucose Urine Opiates Screen Urine Methadone Screen Ur Barbiturates Screen Ur Tricyclics Screen Ur Amphetamines Screen U Benzodiazepines Scrn Urine Cocaine Screen Ur THC Screen COVID-19 Source SARS-CoV-2 (PCR) Add-On Test Request DONE PAWSS Have you Been Recently Intoxicated or Drunk Within the Last 30 days?: Yes Have you Ever Experienced Previous Episodes of Alcohol Withdrawal?: Yes Have you ever Experienced Withdrawal Seizures?: No Have you ever Experienced Delirium Tremens(DT)s?: No Have you ever undergone Alcohol Rehabilitation Treatment (i.e, inpt ot outpatient treatment programs)?: Yes Have you ever Experienced Blackouts?: Yes Have you ever Combined Alcohol with other Downers within the last 90 days?: No Have you ever Combined Alcohol with any other Substance of Abuse during the last 90 days?: Yes Positive Blood Alcohol level on Presentation? [PCS.BAL]: No Evidence of Increased Autonomic Activity (i.e. HR>120, tremor, sweating, agitation, nausea)?: No Result: 6
[2021-08-27] MEDS: PIPERACILLIN/TAZO 3.375 GM in Normal Saline 50 ML IVPB ×4 (02:03→20:33)
[2021-08-27] MEDS: Normal Saline Flush 10 ML SYR IVP ×7 (02:03→20:33)
[2021-08-27] MEDS: VANCOMYCIN/WATER (PEG) 1.5 GM/300 ML BAG IV ×3 (02:42→17:14)
[2021-08-27 05:57] LABS: MCH 30.1 pg (27.0-33.0); MCHC 34.3 % (32.0-36.0); MCV 88 fL (80-95); MPV 11.1 fL (8.0-11.0); Platelet Count 162 10^3/uL (130-400); RBC 3.99 10^6/uL (4.36-5.78); RDW 12.9 % (11.8-14.1); RDW-SD 41.6 fL; WBC 16.52 10^3/uL (4.4-10.8)
[2021-08-27 06:16] LABS: Anion Gap 8.3 mmol/L (3-11); BUN 8 mg/dL (7-18); C-Reactive Protein 22.44 mg/dL (0.0-0.3); CO2 26.7 mmol/L (21.0-32.0); CREATININE 0.7 mg/dL (0.70-1.30); Calcium 8.7 mg/dL (8.5-10.1); Chloride 100 mmol/L (98-107); Glucose 90 mg/dL (74-106); Magnesium 1.9 mg/dL (1.8-2.4); Potassium 3.6 mmol/L (3.5-5.1); Sodium 135 mmol/L (136-145)
[2021-08-27 06:33] LABS: Absolute Neutrophil Count 13.22 10^3/uL (1.2-6.7)
[2021-08-27 06:34] LABS: Absolute Eosinophil Count 0.33 10^3/uL (0.0-0.7); Absolute Lymphocyte Count 1.32 10^3/uL (1.2-3.4); Absolute Monocyte Count 1.65 10^3/uL (0.1-0.8); Diff Comment Manual Differential; RBC Morphology Normal
[2021-08-27 07:55] VITALS: BP 127/59; PULSE 65; RESP 18; TEMP 37.7; O2SAT 96
[2021-08-27] MEDS: Methadone Liquid 10 MG/ML 88 MG PO (08:17)
[2021-08-27 09:12] LABS: Vancomycin, Trough 15.2 ug/mL (10.0-20.0)
--- NOTE | 2021-08-27 09:42 | W.PM.PROGNOT ---
Date of Service Date of service: 08/27/21 Time of Service: 09:42 Assessment and Plan Assessment and plan (1) Cellulitis of buttock, right: Status: Acute Assessment and plan: I think I would continue 1 more day of intravenous antibiotics as we have made improvements each day. We can reassess the wound tomorrow. If it is about the same, then maybe we can try to transition to an oral regimen for antibiotic treatment. Subjective Subjective Interval history since last seen: He says he feels a little better this morning, with less pain and tenderness through the night. The warm compresses were a little uncomfortable, but he does think that helped. He does not have much appetite today, but he says he ate a little more dinner last night. Exam Const General: cooperative and comfortable Back/Spine/Pelvis Pelvis: buttock tenderness and buttock swelling (The right buttock seems much less swollen today. ) on the right Other: Overall, the right buttock continues to improve. It certainly less tender today, and less swollen. The erythema is about the same. The area of seropurulent discharge yesterday remains mildly fluctuant this morning. Objective Last Vital Signs Temp 99.9 F H 08/27/21 07:55 Pulse 65 08/27/21 07:55 Resp 18 08/27/21 07:55 BP 127/59 L 08/27/21 07:55 Pulse Ox 96 08/27/21 07:55 Laboratory Results - last 24 hr 08/27/21 08/27/21 08/27/21 05:04 05:04 08:55 WBC 16.52 H RBC 3.99 L Hgb 12.0 L Hct 35.0 L MCV 88 MCH 30.1 MCHC 34.3 RDW 12.9 Plt Count 162 MPV 11.1 H Immature Gran % See Differential Neutrophils % 80.0 Lymphocytes % 8.0 Monocytes % 10.0 Eosinophils % 2.0 Basophils % 0.0 Nucleated RBC % 0.0 Absolute Neutrophils 13.22 H Absolute Lymphocytes 1.32 Absolute Monocytes 1.65 H Absolute Eosinophils 0.33 Absolute Basophils 0.00 RBC Morphology Normal Sodium 135 L Potassium 3.6 Chloride 100 Carbon Dioxide 26.7 Anion Gap 8.3 BUN 8 Creatinine 0.7 Estimated GFR/1.73 m2 >= 60.00 Glucose 90 Calcium 8.7 Magnesium 1.9 C-Reactive Protein 22.44 H Vancomycin Trough 15.2 PAWSS Have you Been Recently Intoxicated or Drunk Within the Last 30 days?: Yes Have you Ever Experienced Previous Episodes of Alcohol Withdrawal?: Yes Have you ever Experienced Withdrawal Seizures?: No Have you ever Experienced Delirium Tremens(DT)s?: No Have you ever undergone Alcohol Rehabilitation Treatment (i.e, inpt ot outpatient treatment programs)?: Yes Have you ever Experienced Blackouts?: Yes Have you ever Combined Alcohol with other Downers within the last 90 days?: No Have you ever Combined Alcohol with any other Substance of Abuse during the last 90 days?: Yes Positive Blood Alcohol level on Presentation? [PCS.BAL]: No Evidence of Increased Autonomic Activity (i.e. HR>120, tremor, sweating, agitation, nausea)?: No Result: 6
[2021-08-27] MEDS: Ketorolac 15 MG/ML VIAL IVP ×2 (11:33→17:14)
[2021-08-27 14:20] VITALS: BP 128/75; PULSE 67; RESP 18; TEMP 37; O2SAT 95
[2021-08-27 15:30] VITALS: BP 125/65; PULSE 60; RESP 19; TEMP 37.4; O2SAT 100
--- NOTE | 2021-08-27 16:26 | PGE_ITS ---
Date of Service Date of service: 08/27/21 Time of Service: 16:26 Assessment and Plan Assessment and plan (1) Cellulitis of buttock, right: Status: Acute Assessment and plan: Hospital Day 3 - Continue intravenous antibiotics, he has improved each day. We will transition to an oral regimen for antibiotic treatment., Less swelling noted to right buttock; less pain - continue toradol for pain, it has been providing him with good relief. BC continue to be negative Discussed with Dr Ambrosio (2) Tobacco dependence: Status: Chronic Assessment and plan: Nicotine cartridge - this is working well for him (3) Opioid dependence in remission: Status: Chronic Assessment and plan: doing well - continue methadone (4) Discharge planning issues: Status: Acute Assessment and plan: anticipate discharge home - no services (5) DVT prophylaxis: Status: Acute Assessment and plan: SCD Subjective Subjective Patient reports: no new complaints, feels better, pain is less, tolerating a regular diet and voiding w/o difficulty Interval history since last seen: Earl is awake, alert and conversant. He states he has been resting and feeling better, he did have a complaint of pain, but less than it has been. He has good color, VSS - T- 37.4 Exam Const General: cooperative and comfortable Back/Spine/Pelvis Pelvis: buttock tenderness and buttock swelling (The right buttock seems much less swollen today. ) on the right Other: Overall, the right buttock continues to improve. It certainly less tender today, and less swollen. The erythema is about the same. The area of seropurulent discharge yesterday remains mildly fluctuant this morning. Objective Last Vital Signs Temp 37.4 C 08/27/21 15:30 Pulse 60 08/27/21 15:30 Resp 19 08/27/21 15:30 BP 125/65 08/27/21 15:30 Pulse Ox 100 08/27/21 15:30 Laboratory Results - last 24 hr 08/27/21 08/27/21 08/27/21 05:04 05:04 08:55 WBC 16.52 H RBC 3.99 L Hgb 12.0 L Hct 35.0 L MCV 88 MCH 30.1 MCHC 34.3 RDW 12.9 Plt Count 162 MPV 11.1 H Immature Gran % See Differential Neutrophils % 80.0 Lymphocytes % 8.0 Monocytes % 10.0 Eosinophils % 2.0 Basophils % 0.0 Nucleated RBC % 0.0 Absolute Neutrophils 13.22 H Absolute Lymphocytes 1.32 Absolute Monocytes 1.65 H Absolute Eosinophils 0.33 Absolute Basophils 0.00 RBC Morphology Normal Sodium 135 L Potassium 3.6 Chloride 100 Carbon Dioxide 26.7 Anion Gap 8.3 BUN 8 Creatinine 0.7 Estimated GFR/1.73 m2 >= 60.00 Glucose 90 Calcium 8.7 Magnesium 1.9 C-Reactive Protein 22.44 H Vancomycin Trough 15.2 Reviewed Pertinent PMH: Yes PAWSS Have you Been Recently Intoxicated or Drunk Within the Last 30 days?: Yes Have you Ever Experienced Previous Episodes of Alcohol Withdrawal?: Yes Have you ever Experienced Withdrawal Seizures?: No Have you ever Experienced Delirium Tremens(DT)s?: No Have you ever undergone Alcohol Rehabilitation Treatment (i.e, inpt ot outpatient treatment programs)?: Yes Have you ever Experienced Blackouts?: Yes Have you ever Combined Alcohol with other Downers within the last 90 days?: No Have you ever Combined Alcohol with any other Substance of Abuse during the last 90 days?: Yes Positive Blood Alcohol level on Presentation? [PCS.BAL]: No Evidence of Increased Autonomic Activity (i.e. HR>120, tremor, sweating, agitati on, nausea)?: No Result: 6
[2021-08-27 20:30] VITALS: BP 127/66; PULSE 61; RESP 19; TEMP 37.1; O2SAT 96
[2021-08-27] MEDS: Docusate Sodium 100 MG CAP PO (20:33)
[2021-08-27] MEDS: Melatonin 3 MG TAB 9 MG PO (20:34)
[2021-08-27 23:38] VITALS: BP 125/68; PULSE 60; RESP 18; TEMP 36.7; O2SAT 96
[2021-08-28] MEDS: Normal Saline Flush 10 ML SYR IVP ×5 (01:29→15:41)
[2021-08-28] MEDS: PIPERACILLIN/TAZO 3.375 GM in Normal Saline 50 ML IVPB ×3 (01:29→15:41)
[2021-08-28] MEDS: Ketorolac 15 MG/ML VIAL 30 MG IVP ×2 (01:38→10:55)
[2021-08-28] MEDS: VANCOMYCIN/WATER (PEG) 1.5 GM/300 ML BAG IV ×3 (02:21→16:43)
[2021-08-28 03:00] VITALS: BP 120/63; PULSE 63; RESP 17; TEMP 36.2; O2SAT 94
[2021-08-28 05:49] LABS: Abs Immature Grans 0.06 10^3/uL (0.0-0.06); Absolute Basophil Count 0.06 10^3/uL (0.0-0.2); Absolute Monocyte Count 1.49 10^3/uL (0.1-0.8); Basophils % 0.4; HCT 34.4 % (40.0-50.0); HGB 11.6 g/dL (13.5-17.5); Immature Grans % 0.4; Lymphocytes % 16.8; MCH 29.5 pg (27.0-33.0); MCHC 33.7 % (32.0-36.0); MCV 88 fL (80-95); MPV 11.6 fL (8.0-11.0); Monocytes % 10.6; Neutrophils % 66.8; Platelet Count 164 10^3/uL (130-400); RBC 3.93 10^6/uL (4.36-5.78); RDW 12.8 % (11.8-14.1); RDW-SD 41.7 fL; WBC 14.07 10^3/uL (4.4-10.8)
[2021-08-28 05:54] LABS: Absolute Lymphocyte Count 2.36 10^3/uL (1.2-3.4)
[2021-08-28 06:02] LABS: C-Reactive Protein 18.74 mg/dL (0.0-0.3)
[2021-08-28] MEDS: Methadone Liquid 10 MG/ML 88 MG PO (08:27)
--- NOTE | 2021-08-28 08:38 | W.PM.PROGNOT ---
Date of Service Date of service: 08/28/21 Time of Service: 08:39 Assessment and Plan Assessment and plan (1) Cellulitis of buttock, right: Status: Acute Assessment and plan: Fluctulant drainage noted on dressing, from open area of right buttock. No fluctulance appreciated on exam. Induration only. Irrigate/cleanse with sterile saline, apply mepilex dressing for drainage. Continue antibiotics Encouraged frequent position changes to reduce pressure on the area. Continues to have leukocytosis Subjectively patient reports feeling much improved since admission. Encouraged ambulation and activity OOB as tolerated. (2) Tobacco dependence: Status: Chronic Assessment and plan: Nicotine cartridge - this is working well for him (3) Opioid dependence in remission: Status: Chronic Assessment and plan: doing well - continue methadone (4) Discharge planning issues: Status: Acute Assessment and plan: anticipate discharge home - no services (5) DVT prophylaxis: Status: Acute Assessment and plan: SCD Subjective Subjective Interval history since last seen: Patient reports that he rolled yesterday afternoon and noted a pop and then found that there was an area draining on his right buttock. He states the pain and swelling seems to have improved signficiantly. He denies having any fevers or chills. Exam Const General: cooperative, healthy appearing and comfortable Orientation: alert and oriented x3 Resp Effort & Inspection: normal respiratory effort, no audible wheezes and no cough Skin Other: Right buttock- Outline noted. Mepilex dressing in place, this was removed. Mild erythema localized to a .5 cm open area draining fluctulant material. Mild induration and erythema localized to this opening. Mild tenderness with palpation. Objective Last Vital Signs Temp 36.2 C L 08/28/21 03:00 Pulse 63 08/28/21 03:00 Resp 17 08/28/21 03:00 BP 120/63 08/28/21 03:00 Pulse Ox 94 08/28/21 03:00 Laboratory Results - last 24 hr 08/27/21 08/28/21 08/28/21 08:55 05:06 05:22 WBC 14.07 H RBC 3.93 L Hgb 11.6 L Hct 34.4 L MCV 88 MCH 29.5 MCHC 33.7 RDW 12.8 Plt Count 164 MPV 11.6 H Immature Gran % 0.4 Neutrophils % 66.8 Lymphocytes % 16.8 Monocytes % 10.6 Eosinophils % 5.0 Basophils % 0.4 Nucleated RBC % 0.0 Absolute Neutrophils 9.40 H Absolute Lymphocytes 2.36 Absolute Monocytes 1.49 H Absolute Eosinophils 0.70 Absolute Basophils 0.06 C-Reactive Protein 18.74 H Vancomycin Trough 15.2 PAWSS Have you Been Recently Intoxicated or Drunk Within the Last 30 days?: Yes Have you Ever Experienced Previous Episodes of Alcohol Withdrawal?: Yes Have you ever Experienced Withdrawal Seizures?: No Have you ever Experienced Delirium Tremens(DT)s?: No Have you ever undergone Alcohol Rehabilitation Treatment (i.e, inpt ot outpatient treatment programs)?: Yes Have you ever Experienced Blackouts?: Yes Have you ever Combined Alcohol with other Downers within the last 90 days?: No Have you ever Combined Alcohol with any other Substance of Abuse during the last 90 days?: Yes Positive Blood Alcohol level on Presentation? [PCS.BAL]: No Evidence of Increased Autonomic Activity (i.e. HR>120, tremor, sweating, agitation, nausea)?: No Result: 6
[2021-08-28 09:00] VITALS: BP 127/67; PULSE 54; RESP 18; TEMP 37; O2SAT 94
--- NOTE | 2021-08-28 09:17 | CMPROGNOTE_ITS ---
- If Service Date Differs Date of service: 08/28/21 Time of Service: 09:17 Care Management Progress Note S/O: Earl is being treated with IV abx and toradol with pain. Gen. Surg. is providing wound management. Cultures are pending. CM provided Earl with a letter for his employer at his request. A: 25 year old male admitted to [facility] on 08/26/21 for Cellulites of Buttock P: Anticipate, Earl will discharge back to his friend Jesus Manuel's house when medically ready. He will follow up with community providers and discharge plan of care as precribed. He will transport via [facility].
[2021-08-28 11:20] LABS: HIV-1/2 Ag & Ab Screen Negative (Negative)
[2021-08-28 12:24] LABS: HBs Antibody, Qual Negative (See Note); HBs Antibody, Quant <3.1 mIU/mL (See Note); Hepatitis B Core Antibody Negative (Negative); Hepatitis B surface Ag Negative (Negative); Hepatitis C Ab w Rflx HCV PCR Reactive (Negative)
[2021-08-28 12:34] VITALS: BP 115/71; PULSE 64; RESP 17; TEMP 36; O2SAT 96
--- NOTE | 2021-08-28 14:07 | W.PM.PROGNOT ---
Date of Service Date of service: 08/28/21 Time of Service: 14:07 Assessment and Plan Assessment and plan (1) Cellulitis of buttock, right: Status: Acute Assessment and plan: Purulant drainage noted on the dressing, from open area of right buttock - surgery is consulted. Wound cx done WBC decreased, CRP decreased, afebrile. The end of a q-tip probed 3 cm in the center of the wound - I did let surgery know about this. Continue IV abx Discussed with Dr Ambrosio (2) Pain: Status: Acute Assessment and plan: Tender - ketorelac is working well, will continue Warm packs Keep off area (3) Tobacco dependence: Status: Chronic Assessment and plan: Nicotine cartridge - this is working well for him (4) Opioid dependence in remission: Assessment and plan: doing well - continue methadone (5) Discharge planning issues: Status: Deleted Assessment and plan: anticipate discharge home - no services (6) DVT prophylaxis: Status: Deleted Assessment and plan: SCD Subjective Subjective Patient reports: feels better, pain is less and tolerating a regular diet Interval history since last seen: Earl reports feeling better today. The erythema has dissipated somewhat, leaving an area of about 5 cm round induration. Surgery saw him this am and he does not need I&D. There is an area in the middle that is draining brown, think purulent fluid. I did get a wound culture and ordered an ultrasound of the are to see if it has consolidated. Surgery cancelled the US and did a bedside I&D - he will be discharged this afternoon on Bactrim and will follow up with Dr Jewell on 08/29 Exam Const General: cooperative, healthy appearing and comfortable Orientation: alert and oriented x3 Resp Effort & Inspection: normal respiratory effort, no audible wheezes and no cough Back/Spine/Pelvis Pelvis: buttock tenderness (Pain improved with Ketorelac) and buttock swelling (The right buttock seems much less swollen today. ) on the right Other: Overall, the right buttock continues to improve. It certainly less tender today, and less swollen. The erythema is about the same. The area of seropurulent discharge yesterday remains mildly fluctuant this morning. Skin Other: Right buttock- Outline noted. Erythema is dissipating, continues to be hot to the touch. The surrounding area is about 5 cm; A mepilex dressing is in place, this was removed and it was found to have a small <0.5 cm darker, erythematous area that is draining brown, malodorous, purulent fluid. Mild tenderness with palpation. Surrounding area is indurated and tender. Neuro General: patient alert, patient awake and patient oriented x3 Cranial Nerves: CN's II-XI intact bilaterally Motor: muscle tone normal throughout Sensory Exam: no sensory deficits noted Extrem General: normal to inspection Objective Last Vital Signs Temp 36.0 C L 08/28/21 12:34 Pulse 64 08/28/21 12:34 Resp 17 08/28/21 12:34 BP 115/71 08/28/21 12:34 Pulse Ox 96 08/28/21 12:34 Laboratory Results - last 24 hr 08/28/21 08/28/21 05:06 05:22 WBC 14.07 H RBC 3.93 L Hgb 11.6 L Hct 34.4 L MCV 88 MCH 29.5 MCHC 33.7 RDW 12.8 Plt Count 164 MPV 11.6 H Immature Gran % 0.4 Neutrophils % 66.8 Lymphocytes % 16.8 Monocytes % 10.6 Eosinophils % 5.0 Basophils % 0.4 Nucleated RBC % 0.0 Absolute Neutrophils 9.40 H Absolute Lymphocytes 2.36 Absolute Monocytes 1.49 H Absolute Eosinophils 0.70 Absolute Basophils 0.06 C-Reactive Protein 18.74 H Reviewed Pertinent PMH: Yes PAWSS Have you Been Recently Intoxicated or Drunk Within the Last 30 days?: Yes Have you Ever Experienced Previous Episodes of Alcohol Withdrawal?: Yes Have you ever Experienced Withdrawal Seizures?: No Have you ever Experienced Delirium Tremens(DT)s?: No Have you ever undergone Alcohol Rehabilitation Treatment (i.e, inpt ot outpatient treatment programs)?: Yes Have you ever Experienced Blackouts?: Yes Have you ever Combined Alcohol with other Downers within the last 90 days?: No Have you ever Combined Alcohol with any other Substance of Abuse during the last 90 days?: Yes Positive Blood Alcohol level on Presentation? [PCS.BAL]: No Evidence of Increased Autonomic Activity (i.e. HR>120, tremor, sweating, agitation, nausea)?: No Result: 6
[2021-08-28] MEDS: Lidocaine 1% Multi-Dose 50 ML VIAL (14:59)
--- NOTE | 2021-08-28 15:18 | W.PM.OP ---
Date of service: 08/28/21 Time of Service: 15:18 Operative Note Operative Note DATE OF PROCEDURE: 08/28/21 PRE-OP DIAGNOSIS: Left Buttock abscess POST-OP DIAGNOSIS: same PROCEDURE: I & D of abscess SURGEON: Adore Goel ANESTHESIA TYPE: Local By Surgeon (3 cc of 1% Lidocaine) Refer to Anesthesia Record ESTIMATED BLOOD LOSS: 3 PATHOLOGY: none sent COMPLICATIONS: None Patient was transported to: no change Patient's condition: stable Indications: Mr. Garcia is a pleasant 25 year old male admitted on 08/26 with cellulitis of his buttock. He was started on antibiotics. CT scan at time of admission didn't show a drainable abscess. This morning he noted some drainage. Discussed opening the area and draining it properly. Risk, benefits and complications discussed with him. Findings: 50 cc of thick purulent discharge. Procedure Description: After informed consent was obtained the patient was placed in a right decubitous position on the bed. The patients buttock was prepped with iodine. The dermis and subcutaneous tissue was infiltrated with 1% Lidocaine. Using a 11 blade the opening over the abscess cavity was enlarged to 1 cm. The cavity was opened with a hemostat. 50 cc of purulent fluid was removed. The cavity was then irrigated with 50 cc of warm normal saline. Once the effluent was clear a 1/4 piece of iodofore was gently placed into the cavity. A large band-aid was applied. The patient tolerated the procedure well and there were no immediate complications.
--- NOTE | 2021-08-28 15:28 | W.PM.DS.N ---
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 He had presented with right buttock swelling and redness after attempting to drain an abscess by expressing a pimple.? He denied fever or rigors, he stated it has gotten harder, more red, and he had increased pain. He was evaluated by general surgery in the ED to ensure that he did not have either a necrotizing fasciitis or a small bowel intussusception, as the preliminary read of his pelvic CT had suggested. ?He was started on vancomycin and Zosyn empirically and ketoralac. With this, he improved..?The abscess consolidated and opened, draining purulent fluid. The culture of this later grew MRSA(final sensitivities still pending). Surgery came to the bedside and drained the abscess on 08/28/21. They placed a wick and he was discharged home on bactrim. He will followup with Dr Jewell on August 30. Patient care and documentation [address] Ambrosio and Dr Goel Home Meds and New Rx's Prescriptions: New sulfamethoxazole-trimethoprim [Bactrim DS] 800-160 mg tablet 2 tab PO BID Qty: 14 0RF No Action methadone 10 mg/5 mL Solution 88 mg PO DAILY Discharge Instructions Instructions: Sulfamethoxazole/Trimethoprim (By mouth), Abscess Incision and Drainage (DC) Additional Instructions: You have an appointment with Dr Jewell on , 08/30/2021 @ 11:45 am for follow up. Stand Alone Forms: Nursing Discharge Form Referrals: Narciso Jewell MD [ [facility] STAFF PHYSICIAN] - (appointment 08/30 @ 11:45 am for FU abscess wick removal/assess On Bactrim DS - 2 twice a day x 7d.) Activity:: Activity as Tolerated Equipment/Supplies:: No Equipment Needed Diet:: As Tolerated Discharge Orders Discharge Orders: Discharge Order (Routine); Ordered 08/28/21 Ordered By: Ashley Giang Discharge Data Discharge Date/Time-TO BE ENTERED AT DEPARTURE: 08/28/21 18:54 DS: Summary Time Spent with Patient providing and/or coordinating discharge services: Greater than 30 minutes Status at Discharge Functional status at discharge: independent ambulation Overall status at discharge: patient is progressing back to baseline Mental Status: mental status grossly normal Speech and Movement: speech and movement normal Mood: congruent mood Affect: normal affect Exam Psych Mental Status: mental status grossly normal Speech and Movement: speech and movement normal Mood: congruent mood Affect: normal affect DS: Data Vitals/I&O Vitals and I&O: Vital Signs Temperature 36.0 C L 08/28/21 12:34 Temperature Source Tympanic 08/28/21 12:34 Pulse 64 08/28/21 12:34 Pulse Rhythm Regular 08/28/21 07:50 Respiratory Rate 17 08/28/21 12:34 Respiratory Effort Non-Labored 08/28/21 07:50 Respiratory Depth Normal 08/28/21 07:50 Respiratory Pattern Normal 08/28/21 07:50 Blood Pressure 115/71 08/28/21 12:34 Blood Pressure Position Sitting 08/25/21 18:02 Pulse Oximetry 96 08/28/21 12:34 Oxygen Delivery Method Room Air 08/28/21 12:34 Oxygen Flow Rate 0 08/28/21 12:34 Pain Level 2 08/28/21 12:34 Comment 08/26/21 15:51 Intake & Output 08/27/21 08/28/21 08/28/21 23:59 11:59 23:59 Intake Total 760 / 1860 880 / 880 Balance 760 / 1860 880 / 880 Weight 75.5 kg Intake: IV 400 / 1100 400 / 400 Oral 360 / 760 480 / 480 Other: Comment patient voids independently pT goes to the bathroom independently. pT goes to bathroom independently. Voiding Methods Toilet Toilet Toilet Data Completed and Pending Labs on day of discharge: Labs from last 24 hours 08/28/21 08/28/21 08/27/21 05:22 05:06 05:04 WBC 14.07 H RBC 3.93 L Hgb 11.6 L Hct 34.4 L MCV 88 MCH 29.5 MCHC 33.7 RDW 12.8 Plt Count 164 MPV 11.6 H Immature Gran % 0.4 Neutrophils % 66.8 Lymphocytes % 16.8 Monocytes % 10.6 Eosinophils % 5.0 Basophils % 0.4 Nucleated RBC % 0.0 Absolute Neutrophils 9.40 H Absolute Lymphocytes 2.36 Absolute Monocytes 1.49 H Absolute Eosinophils 0.70 Absolute Basophils 0.06 C-Reactive Protein 18.74 H Hep Bs Antigen Negative Hep Bs Antibody Negative Hep Bs Antibody, Quant <3.1 Hep B Core Total Ab Negative Hepatitis C Antibody Reactive A HCV RNA Qual (PCR) Pending Hepatitis C RNA Quant Pending HIV 1&2 Ag/Ab, 4th Gen 08/27/21 05:04 WBC RBC Hgb Hct MCV MCH MCHC RDW Plt Count MPV Immature Gran % Neutrophils % Lymphocytes % Monocytes % Eosinophils % Basophils % Nucleated RBC % Absolute Neutrophils Absolute Lymphocytes Absolute Monocytes Absolute Eosinophils Absolute Basophils C-Reactive Protein Hep Bs Antigen Hep Bs Antibody Hep Bs Antibody, Quant Hep B Core Total Ab Hepatitis C Antibody HCV RNA Qual (PCR) Hepatitis C RNA Quant HIV 1&2 Ag/Ab, 4th Gen Negative 08/28/21 10:30 Buttock - Right Wound Culture - Pending Preliminary micro results at discharge 08/28/21 10:30 Wound Culture - Pending Buttock - Right 08/25/21 18:18 Blood Culture - Preliminary Blood NO GROWTH 48 HOURS 08/25/21 19:00 Blood Culture - Preliminary Blood NO GROWTH 48 HOURS PFSH All Active Problems Pain (Acute) Tobacco dependence (Chronic) Cellulitis of buttock, right (Acute) Contusion of foot (Acute) Foot swelling (Acute) Medical History Opioid dependence in remission Vitiligo Surgical History No significant past surgical history Family History Mother Essential hypertension Depression Father No problems noted. Sister Essential hypertension Sister No problems noted. Brother No problems noted. FAMILY HISTORY Substance abuse Alcohol abuse Essential hypertension Depression Social History Smoking/Tobacco Use Status: Current every day Tobacco Type: cigarettes Smoking risk assessment performed?: Yes Alcohol Intake: current Alcohol Intake frequency: holidays/special occasions only Drug use: Daily Substance use type: marijuana and opiates Do you feel safe at home: Yes Do you feel safe in your relationship?: Yes
--- NOTE | 2021-08-28 16:03 | PDOC.CMDIS ---
- If Service Date Differs Date of service: 08/28/21 Time of Service: 16:04 LACE Index Scoring Tool - Questions: Length of Stay (in days): 2 Acuity (Admit via E.D.?): Yes E.D. Visits: 2 - Answers: Total Score: 7 Risk of Readmission: Low Risk Care Management Discharge Reason for Hospitalization: Cellulitis Buttock Discharge Plan: Earl is medically cleared for discharge. He is staying with his friend who lives closeby and will walk there. Earl will follow up with Dr. Jewell at [facility] on 08/30/21, as scheduled. He will also complete the course of Bactrim as prescribed. RX is transmitted to [facility]. CM provided patient with a letter for work and a last dose letter for SHAUN, prior to discharge. Per pt, he will work on establishing care with a PCP. Patient/Family Education Needs: Review discharge instructions, limitations, medications and plan to follow up with community providers. ask me three.
[2021-08-28 16:14] VITALS: BP 130/81; PULSE 64; RESP 16; TEMP 36.4; O2SAT 97
[2021-08-30 14:34] LABS: HCV RNA Qualitative Undetected (Undetected)
== END 2021-08-28 18:54 | disposition home or self-care (01) | DRG 603 ==
LOC: ER 22:49 → MS 08-26 01:11
PROVIDERS: Internal Medicine; Nurse Practitioner Family; Admitting Provider Family Medicine; Emergency Provider Physician Assistant; Visit Provider Family Medicine
DX: L03.317 Cellulitis of buttock (principal); F11.20 Opioid dependence, uncomplicated; L80 Vitiligo; F17.210 Nicotine dependence, cigarettes, uncomplicated
CPT/HCPCS: 10060; 36415; 80048; 80053; 80307; 84145; 86704; 86706; 86803; 87040; 87077; 87340; 87389; 87522; 87635; 72193; 80202; 81003; 81015; 83605; 83735; 84484; 85025; 86140; 87070; 87186; 87205; 99223; 99232; 99239; J1885; J2543; J3490

== ENCOUNTER 2022-01-28 15:06 | Emergency (ER) | payer MEDICAID, SELFPAY ==
[2022-01-28 15:22] VITALS: BP 118/73; PULSE 60; RESP 18; TEMP 37.2; O2SAT 95
--- NOTE | 2022-01-28 16:04 | ED.GENADUL_ITS ---
Discharge Plan Disposition Patient Disposition: Home Condition: Stable Discharge Details Clinical Impression: Abscess, dental Primary Care Provider: Yovany Arndt ED Provider: David Hi Home Meds and New Rx's Prescriptions: New amoxicillin-pot clavulanate 875-125 mg tablet 1 tab PO Q12H 7 Days Qty: 14 0RF diclofenac potassium 50 mg tablet 50 mg PO TID PRN (Reason: pain) Qty: 15 0RF Continued methadone 10 mg/5 mL solution 105 mg PO DAILY Discharge Instructions Instructions: Dental Abscess (ED) Additional Instructions: If you develop fever chills, difficulty breathing swallowing, or swelling to your tongue return immediately to the emergency department for reassessment. Otherwise it is important that you follow-up with a dental provider for definitive care of your dental condition. Because of the prescribed medication please do not take any further [id number] NSAIDs due to potential interaction but you may take acetaminophen/Tylenol as directed on packaging. Referrals: [facility] [Provider Group] - 3 days (For reassessment of your dental infection and plan of definitive care) Discharge Data Discharge Date/Time-TO BE ENTERED AT DEPARTURE: 01/28/22 16:19 Medical Decision Making Patient presenting to the emergency department for chief complaint of potential dental infection. Patient states that he has been having intermittent tooth ache of the right upper molar for a while but over the last 24 hours has noted a significant increase in pain and discomfort along with facial swelling. Patient denies all other symptoms. Physical exam shows edema and tenderness to tooth #2 and surrounding tissue. Bedside ultrasound was used and could not identify fluctuant abscess but I am concerned for early dental abscess. Patient placed upon Augmentin and given prescription for NSAID. Discussed with patient return and follow-up precautions. 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 Pt non toxic and stable. Patient recommended to follow-up with dental provider for definitive care of condition. After discussion of diagnosis and plan of care patient has no further needs, questions, or concerns and states clear understanding to return to the emergency department for any worsening symptoms. This documentation was generated using [employer] system, please disregard any oddities of phrase or misspellings. HPI General Mode of arrival: ambulatory . Date/Time Provider Initiated Documentation: 01/28/22 16:03 . Limitations to Documentation: no limitations . Information obtained by: patient and RN notes reviewed . History of Present Illness 26 year old M presents to the emergency department with the chief complaint of dental infection , described as moderate, with intensity rated at 8. Quality is described as aching, and is localized to the mouth. Patient reports no radiation. Patient started experiencing this day(s) (1) and it has been constant. No relieving factors improve symptom(s), No exacerbating factors reported . Patient notes no other symptoms.. Patient did receive the following treatments prior to arrival, none Related Data Home Medications Medication Instructions Recorded Confirmed methadone 10 mg/5 mL oral solution 105 mg PO DAILY 10/05/21 amoxicillin 875 mg-potassium 1 tab PO Q12H 7 days #14 tabs 01/28/22 clavulanate 125 mg tablet diclofenac potassium 50 mg tablet 50 mg PO TID PRN pain #15 tabs 01/28/22 Previous Rx's Medication Instructions Recorded amoxicillin 875 mg-potassium 1 tab PO Q12H 7 days #14 tabs 01/28/22 clavulanate 125 mg tablet diclofenac potassium 50 mg tablet 50 mg PO TID PRN pain #15 tabs 01/28/22 Allergies Allergy/AdvReac Type Severity Reaction Status Date / Time No Known Allergies Allergy Verified 10/05/21 14:49 General Stated Complaint: DentalOral DERIC: 4 Review of Systems Constitutional Constitutional: Denies chills and Denies fever(s) ENT Ears, Nose, Mouth, and Throat: Reports as per HPI, Denies change in voice, Reports dental pain, Denies dysphagia, Denies throat swelling and Denies tongue swelling Cardiovascular Cardiovascular: Denies chest pain and Denies dyspnea Respiratory Respiratory: Denies dyspnea, Denies stridor and Denies wheezing Gastrointestinal Gastrointestinal: Denies abdominal pain, Denies dysphagia, Denies nausea and Denies vomiting Integumentary/Breasts Skin/Breast: Denies rash Allergic/Immunologic Allergic/Immunologic: Denies throat swelling, Denies tongue swelling and Denies wheezing PFSH All Active Problems Abscess, dental (Acute) Tobacco dependence (Chronic) Contusion of foot (Acute) Medical History Opioid dependence in remission Vitiligo Surgical History Status post incision and drainage Family History Mother Essential hypertension Depression Father No problems noted. Sister Essential hypertension Sister No problems noted. Brother No problems noted. FAMILY HISTORY Substance abuse Alcohol abuse Essential hypertension Depression Social History Smoking/Tobacco Use Status: Current every day Tobacco Type: cigarettes Tobacco: How many years used: 10 Quit status: not considering quitting Second Hand Exposure: Yes Smoking risk assessment performed?: Yes Alcohol Intake: current Alcohol Intake frequency: a few times a week Drug use: Daily Substance use type: marijuana and painkillers Details: current sobriety heroin/fentanyl Adopted: No Caregiver/Support person: No Foster care: No Household members: none Housing: homeless Number of Children: 0 Communication Needs: None Education Level: high school Do you need help understanding health information?: Often 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 Pets and animals: No Sexually active: Yes Do you think of yourself as: straight/heterosexual Current gender identity: male What is your relationship status?: never How often do you talk on the phone with friends or family?: never How often do you get together with friends or relatives?: twice per week How often do you attend alevism or worship services?: decline to answer Do you belong to any clubs or organized social groups?: no Panel score (0-1 are the most socially isolated patients): 0 What type of physical activity do you participate in: regular exercise Duration: > 90 minutes/day Frequency: 5-6 times per week Apurva/Zoroastrian: None Special apurva needs: No Seatbelt use: never Helmet use: No 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) Do you feel safe at home: Yes Do you feel safe in your relationship?: Yes Exam Const General: cooperative Orientation: alert, awake and oriented x3 Limitations: mental status not altered [facility] Head: normal to inspection, normocephalic and atraumatic Ears: hearing grossly normal bilaterally, normal mastoids bilaterally and no periauricular adenopathy General nose exam: external nose normal Mouth: oropharynx normal, no drooling, no muffled voice, normal tongue and no trismus Teeth and gingiva: abnormal tooth or associated gingiva upper right second molar tender and with associated gingival edema; without associated gingival fluctuance, caries and other (Partially fractured tooth #2 with erythema surrounding the base of the tooth) Throat: posterior oropharynx normal, tonsils normal and uvula midline Eyes General: appearance normal, both eyes and all related structures Pupils: PERRL Neck Neck: normal visual inspection, full ROM, no lymphadenopathy, no meningeal signs, trachea midline, supple, no anterior neck swelling and no midline deformity Resp Effort & Inspection: normal respiratory effort and able to speak in complete sentences Neuro General: patient alert, patient awake and patient oriented x3 Cognition: normal cognition Speech: speech normal Course Vital Signs Vital signs: Vital Signs Temperature 37.2 C 01/28/22 15:22 Pulse 60 01/28/22 15:22 Respiratory Rate 18 01/28/22 15:22 Blood Pressure 118/73 01/28/22 15:22 Pulse Oximetry 95 01/28/22 15:22 Temperature 37.2 C 01/28/22 15:22 Temperature Source Temporal Artery Scan 01/28/22 15:22 Pulse 60 01/28/22 15:22 Respiratory Rate 18 01/28/22 15:22 Respiratory Effort 01/28/22 15:44 Blood Pressure 118/73 01/28/22 15:22 Blood Pressure Position Sitting 01/28/22 15:22 Pulse Oximetry 95 01/28/22 15:22 Oxygen Delivery Method Room Air 01/28/22 15:22 Oxygen Flow Rate 0 01/28/22 15:22 Pain Level 7 01/28/22 15:42
[2022-01-28] MEDS: Ketorolac 30 MG/ML VIAL IM (16:14)
[2022-01-28] MEDS: Amoxicillin 875/Clav. 125 TAB PO (16:14)
--- NOTE | 2022-01-28 16:16 | NUR.NOTE ---
Nursing Note: REFFERAL TO [facility] FOR [facility] ANDERSEN
== END 2022-01-28 16:19 | disposition home or self-care (01) ==
PROVIDERS: Emergency Provider Nurse Practitioner Family; PCP Family Medicine
DX: K04.7 Periapical abscess without sinus (principal); F17.210 Nicotine dependence, cigarettes, uncomplicated
CPT/HCPCS: 96372; 99284; 99283; J1885

== ENCOUNTER 2022-06-28 11:07 | Emergency (ER) | payer MEDICAID, SELFPAY ==
[2022-06-28 11:11] VITALS: BP 129/81; PULSE 80; RESP 18; TEMP 36.9; O2SAT 96
--- NOTE | 2022-06-28 11:32 | ED.GENADUL_ITS ---
Discharge Plan Disposition Patient Disposition: Home Condition: Stable Discharge Details Clinical Impression: Right groin pain Primary Care Provider: Yovany Arndt ED Provider: Jesus Manuel Reed Home Meds and New Rx's Prescriptions: Continued diclofenac potassium 50 mg tablet 50 mg PO TID PRN (Reason: pain) Qty: 15 0RF methadone 10 mg/5 mL solution 120 mg PO DAILY Discharge Instructions Instructions: Inguinal Hernia (ED) Additional Instructions: I suspect your pain is related to muscle strain or inguinal hernia. There is no hernia present at this time. Avoid any activities that worsen pain. Avoid heavy lifting, anything greater than 20 pounds over the next 2 weeks. Please contact your primary care physician to arrange follow-up. Return to the ER immediately for any worsening or new concerning symptoms. Stand Alone Forms: Work Release Referrals: Yovany Arndt DO [Primary Care Provider] - Medical Decision Making 26-year-old male here with right groin pain and tenderness along insertion of abductor muscle no hernia present. Suspect muscle strain versus less likely intermittent inguinal hernia. I recommended rest and avoidance of any activities that worsen pain over the next couple weeks. I will refill diclofenac prescription for the patient at his request. Usual customary discharge instructions were reviewed. HPI General Mode of arrival: ambulatory . Date/Time Provider Initiated Documentation: 06/28/22 11:22 . Limitations to Documentation: no limitations . Information obtained by: patient . HPI Narrative: 26-year-old male here with chief complaint of right groin pain. Patient has pain for the past 5 days. Patient notes pulling sensation, worse with lifting. 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 No associated abdominal pain. No penile discharge. No testicular swelling. Related Data Home Medications Medication Instructions Recorded Confirmed methadone 10 mg/5 mL oral solution 120 mg PO DAILY 10/05/21 06/28/22 diclofenac potassium 50 mg tablet 50 mg PO TID PRN pain #15 tabs 06/28/22 Previous Rx's Medication Instructions Recorded diclofenac potassium 50 mg tablet 50 mg PO TID PRN pain #15 tabs 06/28/22 Allergies Allergy/AdvReac Type Severity Reaction Status Date / Time No Known Allergies Allergy Verified 10/05/21 14:49 General Stated Complaint: GenMedical DERIC: 4 Review of Systems Constitutional Constitutional: Denies fever(s) Genitourinary Genitourinary: Reports as per HPI PFSH All Active Problems Right groin pain (Acute) Tobacco dependence (Chronic) Contusion of foot (Acute) Medical History Opioid dependence in remission Vitiligo Surgical History Status post incision and drainage Family History Mother Essential hypertension Depression Father No problems noted. Sister Essential hypertension Sister No problems noted. Brother No problems noted. FAMILY HISTORY Substance abuse Alcohol abuse Essential hypertension Depression Social History Smoking/Tobacco Use Status: Current every day Tobacco Type: cigarettes Tobacco: How many years used: 10 Quit status: not considering quitting Second Hand Exposure: Yes Smoking risk assessment performed?: Yes Alcohol Intake: current Alcohol Intake frequency: a few times a week Drug use: Daily Substance use type: marijuana and painkillers Details: current sobriety heroin/fentanyl- clean for 1 year Adopted: No Caregiver/Support person: No Foster care: No Household members: none Housing: homeless Number of Children: 0 Communication Needs: None Education Level: high school Do you need help understanding health information?: Often 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 Pets and animals: No Sexually active: Yes Do you think of yourself as: straight/heterosexual Current gender identity: male What is your relationship status?: never How often do you talk on the phone with friends or family?: never How often do you get together with friends or relatives?: twice per week How often do you attend restorationism or caodaism services?: decline to answer Do you belong to any clubs or organized social groups?: no Panel score (0-1 are the most socially isolated patients): 0 What type of physical activity do you participate in: regular exercise Duration: > 90 minutes/day Frequency: 5-6 times per week Apurva/Synagogue: None Special apurva needs: No Seatbelt use: never Helmet use: No 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) Do you feel safe at home: Yes Do you feel safe in your relationship?: Yes Exam Const General: cooperative and no acute distress HENMT Mouth: moist mucous membranes Eyes Conjunctivae: normal conjunctivae Sclera: normal sclerae Neck Neck: trachea midline and supple Cardio Rate: regular rate and not tachycardic GI Palpation: soft, not firm, no guarding, no masses, not rigid and nontender Scrotum: scrotum normal Testes: normal, no masses, no testicular mass and no testicular swelling Other: No lymphadenopathy, tender at insertion of adductor on pelvis; no hernia, exam performed with nurse brick unloader tender present Skin Rashes: rashes noted (vitiligo) Neuro General: patient alert, patient awake, patient oriented x3 and tone normal Extrem General: no edema Course Vital Signs Vital signs: Vital Signs Temperature 36.9 C 06/28/22 11:11 Pulse 80 06/28/22 11:11 Respiratory Rate 18 06/28/22 11:11 Blood Pressure 129/81 06/28/22 11:11 Pulse Oximetry 96 06/28/22 11:11 Temperature 36.9 C 06/28/22 11:11 Temperature Source Oral 06/28/22 11:11 Pulse 80 06/28/22 11:11 Respiratory Rate 18 06/28/22 11:11 Respiratory Effort Normal 06/28/22 11:23 Respiratory Depth Normal 06/28/22 11:23 Respiratory Pattern Normal 06/28/22 11:23 Blood Pressure 129/81 06/28/22 11:11 Pulse Oximetry 96 06/28/22 11:11 Oxygen Delivery Method Room Air 06/28/22 11:11 Oxygen Flow Rate 0 06/28/22 11:11 PAWSS Have you Been Recently Intoxicated or Drunk Within the Last 30 days?: Yes Have you Ever Experienced Previous Episodes of Alcohol Withdrawal?: No Have you ever Experienced Withdrawal Seizures?: No Have you ever Experienced Delirium Tremens(DT)s?: No Have you ever undergone Alcohol Rehabilitation Treatment (i.e, inpt ot outpatient treatment programs)?: Yes Have you ever Experienced Blackouts?: Yes Have you ever Combined Alcohol with other Downers within the last 90 days?: Yes Have you ever Combined Alcohol with any other Substance of Abuse during the last 90 days?: Yes Positive Blood Alcohol level on Presentation? [PCS.BAL]: No Evidence of Increased Autonomic Activity (i.e. HR>120, tremor, sweating, agitation, nausea)?: No Result: 5
== END 2022-06-28 12:09 | disposition home or self-care (01) ==
PROVIDERS: Emergency Provider Student in an Organized Health Care Education/Training Program; PCP Family Medicine
DX: R10.30 Lower abdominal pain, unspecified (principal)
CPT/HCPCS: 99283; 99284

== ENCOUNTER 2022-09-08 08:37 | Emergency (ER) | payer MEDICAID, SELFPAY ==
[2022-09-08 08:42] VITALS: BP 125/70; PULSE 67; RESP 18; O2SAT 95
--- NOTE | 2022-09-08 09:20 | ED.GENADUL_ITS ---
Discharge Plan Disposition Patient Disposition: Home Discharge Details Clinical Impression: Abscess of buttock, right Primary Care Provider: Yovany Arndt ED Provider: David Hi Home Meds and New Rx's Prescriptions: New sulfamethoxazole-trimethoprim [Bactrim DS] 800-160 mg tablet 1 tab PO BID Qty: 14 0RF Continued diclofenac potassium 50 mg tablet 50 mg PO TID PRN (Reason: pain) Qty: 90 1RF methadone 10 mg/5 mL solution 120 mg PO DAILY Discharge Instructions Instructions: Abscess (ED) Additional Instructions: Please continue to apply warm compresses to the area and change dressing as needed. Take antibiotics as prescribed and for the full 7 days and return to [facility] emergency department for any new or significant worsening of symptoms otherwise follow-up with your primary care provider for reassessment. Referrals: Yovany Arndt, [Primary Care Provider] - (As needed for reassessment or if not improving) Discharge Data Discharge Date/Time-TO BE ENTERED AT DEPARTURE: 09/08/22 09:52 Medical Decision Making Patient presenting to the emergency department for chief complaint of right buttock abscess. Patient reports for the past 4 to 5 days he has noted some increased pain and swelling to the right buttock near the crease. Patient does state history of staph infection with negative admission in the past and is concerned for this. Patient denies all other symptoms. Physical exam shows an approximate 4 cm x 3 cm abscess on the right upper medial buttock. Patient gave verbal consent to I&D of the area. Please see procedure note for procedure. Procedure was performed in standard sterile fashion and approximately a 1 cm incision was made. Patient tolerated procedure well and small amount of purulent drainage was removed. Given only small amount of drainage expressed in patient's history will place patient on Bactrim and have patient return as needed. After discussion of diagnosis and plan of care patient has no further needs, questions, or concerns and states clear understanding to return to the emergency department for any worsening symptoms. This documentation was generated using [employer] system, please disregard any oddities of phrase or misspellings. HPI General Mode of arrival: ambulatory . Date/Time Provider Initiated Documentation: 09/08/22 08:47 . Limitations to Documentation: no limitations . Information obtained by: patient and RN notes reviewed . History of Present Illness 26 year old M presents to the emergency department with the chief complaint of Right buttock abscess, described as moderate, Quality is described as aching, and is localized to the buttocks and right. Patient started experiencing this day(s) (5) and it has been constant. No relieving factors improve symptom(s), No exacerbating factors reported . Patient notes no other symptoms.. Patient did receive the following treatments prior to arrival, none Related Data Home Medications Medication Instructions Recorded Confirmed methadone 10 mg/5 mL oral solution 120 mg PO DAILY 10/05/21 09/08/22 diclofenac potassium 50 mg tablet 50 mg PO TID PRN pain #90 tabs 07/19/22 09/08/22 sulfamethoxazole 800 1 tab PO BID #14 tabs 09/08/22 mg-trimethoprim 160 mg tablet (Bactrim DS) Previous Rx's Medication Instructions Recorded diclofenac potassium 50 mg tablet 50 mg PO TID PRN pain #90 tabs 07/19/22 sulfamethoxazole 800 1 tab PO BID #14 tabs 09/08/22 mg-trimethoprim 160 mg tablet (Bactrim DS) Allergies Allergy/AdvReac Type Severity Reaction Status Date / Time No Known Allergies Allergy Verified 09/08/22 08:46 General Stated Complaint: Cellulitis DERIC: 4 Review of Systems Constitutional Constitutional: Denies chills and Denies fever(s) Cardiovascular Cardiovascular: Denies chest pain Respiratory Respiratory: Denies cough Gastrointestinal Gastrointestinal: Denies abdominal pain, Denies diarrhea, Denies nausea and Denies vomiting Musculoskeletal Musculoskeletal: Denies back pain Integumentary/Breasts Skin/Breast: Reports as per HPI, Reports skin pain, Reports skin swelling and Denies unusual bruising PFSH All Active Problems Abscess of buttock, right (Acute) Tobacco dependence (Chronic) Contusion of foot (Acute) Medical History Opioid dependence in remission Vitiligo Surgical History Status post incision and drainage Family History Mother Essential hypertension Depression Father No problems noted. Sister Essential hypertension Sister No problems noted. Brother No problems noted. 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 Adopted: No Caregiver/Support person: No Foster care: No Household members: none Housing: apartment Number of Children: 0 Communication Needs: None Education Level: high school Do you need help understanding health information?: Often 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 Pets and animals: No Sexually active: Yes Do you think of yourself as: straight/heterosexual Current gender identity: male What is your relationship status?: never How often do you talk on the phone with friends or family?: never How often do you get together with friends or relatives?: twice per week How often do you attend pentecostal or cheondoism services?: decline to answer Do you belong to any clubs or organized social groups?: no Panel score (0-1 are the most socially isolated patients): 0 What type of physical activity do you participate in: regular exercise Duration: > 90 minutes/day Frequency: 5-6 times per week Apurva/Jew: None Special apurva needs: No Seatbelt use: never Helmet use: No 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) Do you feel safe at home: Yes Do you feel safe in your relationship?: Yes Exam Const General: cooperative, no acute distress and not ill appearing Orientation: alert, awake and oriented x3 HENMT Mouth: moist mucous membranes Resp Effort & Inspection: normal respiratory effort, able to speak in complete sentences and no respiratory distress Skin General skin exam: other (Right buttock abscess) Neuro General: patient alert, patient awake, patient oriented x3, moves all extremi ties and no focal motor deficits Sensory Exam: no sensory deficits noted Course Vital Signs Vital signs: Vital Signs Pulse 67 09/08/22 08:42 Respiratory Rate 18 09/08/22 08:42 Blood Pressure 125/70 09/08/22 08:42 Pulse Oximetry 95 09/08/22 08:42 Pulse 67 09/08/22 08:42 Respiratory Rate 18 09/08/22 08:42 Respiratory Effort Normal 09/08/22 08:46 Blood Pressure 125/70 09/08/22 08:42 Blood Pressure Position Supine 09/08/22 08:42 Pulse Oximetry 95 09/08/22 08:42 Oxygen Delivery Method Room Air 09/08/22 08:42 Oxygen Flow Rate 0 09/08/22 08:42 Pain Level 6 09/08/22 08:42 Procedures Abscess I/D Site: Other (buttock) Side (if applicable): Right Sedation/analgesia: None Local Anesthetic: Lidocaine 2% Amount of anesthesia used (mL): 5 Technique: Incised with #11 Blade Amount of fluid expressed (mL): 1 Irrigation: No Packing used?: None
[2022-09-08] MEDS: Sulfameth/Trimeth DS TAB 1 TAB PO (09:47)
--- NOTE | 2022-09-08 09:54 | NUR.NOTE ---
Nursing Note: pateint's clothing dirty and too large. This RN gave information on free clothing from [facility] in [facility]. Patient verbalized he would like to go but he has a hard time getting to town.
== END 2022-09-08 09:52 | disposition home or self-care (01) ==
PROVIDERS: Emergency Provider Nurse Practitioner Family; PCP Family Medicine
DX: L02.31 Cutaneous abscess of buttock (principal); F17.210 Nicotine dependence, cigarettes, uncomplicated
CPT/HCPCS: 10060; 99283

== ENCOUNTER 2023-05-04 08:50 | Emergency (ER) | payer MEDICAID, SELFPAY ==
[2023-05-04 08:52] VITALS: BP 175/96; PULSE 82; RESP 16; TEMP 36.1; O2SAT 97
[2023-05-04] MEDS: Amoxicillin 875/Clav. 125 TAB PO (09:12)
--- NOTE | 2023-05-04 09:12 | NUR.NOTE ---
Referral faxed to [facility] for Preseptial Cellulites of the Eye, visit should be this week.
[2023-05-04] MEDS: Amox. 875/Clav. 125, 2 TABS/BTL 1 TAB PO (09:17)
--- NOTE | 2023-05-04 09:17 | W.ED.GENAD ---
Discharge Plan Disposition Patient Disposition: Home Discharge Details Clinical Impression: Preseptal cellulitis of right eye, Pain around right eye, Swelling of eyelid Primary Care Provider: Yovany Arndt ED Provider: Ishan Morelos Home Meds and New Rx's Prescriptions: New amoxicillin-pot clavulanate 875-125 mg tablet 1 tab PO BID 10 Days Qty: 20 0RF No Action methadone 10 mg/5 mL solution 120 mg PO DAILY Discharge Instructions Instructions: Periorbital Cellulitis in Adults (ED) Additional Instructions: Start oral antibiotic twice daily for the next 10 days. Use the provided erythromycin ointment 3 times a day. Apply thin strip to the eye particularly around the upper lid. Clear crusting and drainage with a cool compress. Apply cool compress several times a day to help with swelling. Return to the emergency department if your symptoms worsen, you develop pain with eye movements, change in vision, fever or headaches. [facility] clinic will contact you for follow up appointment Referrals: [facility] - [facility] General Date/Time Provider Initiated Documentation: 05/04/23 09:05. HPI Narrative: 27-year-old gentleman without significant past medical history presents for evaluation of right eye pain. Reports that symptoms started with some right eye floaters 3 days ago. He reports that last night the swelling increased. He reports pain in the upper lid. He denies pain in his eyeball.. He reports a little bit of blurry vision, but that his eyelid is drooping into his field of vision. This is never happened before, he does not wear contact lenses Related Data Home Medications Medication Instructions Recorded Confirmed methadone 10 mg/5 mL oral solution 120 mg PO DAILY 10/05/21 05/04/23 amoxicillin 875 mg-potassium 1 tab PO BID 10 days #20 tabs 05/04/23 clavulanate 125 mg tablet Previous Rx's Medication Instructions Recorded amoxicillin 875 mg-potassium 1 tab PO BID 10 days #20 tabs 05/04/23 clavulanate 125 mg tablet Allergies Allergy/AdvReac Type Severity Reaction Status Date / Time No Known Allergies Allergy Verified 05/04/23 08:55 General Stated Complaint: EyeProblem DERIC: 4 Exam Narrative Exam Narrative: Review of Systems: All systems reviewed & are unremarkable except as noted in HPI and below Well-developed, no acute distress NCAT Left eye unremarkable. Right upper lid with slight swelling consistent with stye, there is generalized edema, ptosis and swelling of the upper lid, mild periorbital redness, without significant tenderness, no crepitus, eye movements without tenderness, vision normal when lid is lifted RRR Unlabored respiratory effort Nondistended abdomen Extremities w/o deformity, no cyanosis, no edema No rashes or lesions. no focal neurologic deficits Appropriate mood and affect Course Vital Signs Vital signs: Vital Signs Temperature 36.1 C L 05/04/23 08:52 Pulse 82 05/04/23 08:52 Respiratory Rate 16 05/04/23 08:52 Blood Pressure 175/96 H 05/04/23 08:52 Pulse Oximetry 97 05/04/23 08:52 Temperature 36.1 C L 05/04/23 08:52 Temperature Source Skin 05/04/23 08:52 Pulse 82 05/04/23 08:52 Respiratory Rate 16 05/04/23 08:52 Respiratory Effort Normal, Non-Labored 05/04/23 09:01 Blood Pressure 175/96 H 05/04/23 08:52 Blood Pressure Position Sitting 05/04/23 08:52 Pulse Oximetry 97 05/04/23 08:52 Oxygen Delivery Method Room Air 05/04/23 08:52 Oxygen Flow Rate 0 05/04/23 08:52 Pain Level 4 05/04/23 08:52 Medical Decision Making Emergent evaluation of right eye redness and swelling. Initial differential includes stye, conjunctivitis, periorbital cellulitis, no evidence of orbital cellulitis based on examination. Plan for oral antibiotics as well as topical medication. Return precautions advised. Have put in referral for follow-up with eye clinic as well. Quality:SDOH Health Related Social Needs: No Data to Display PFSH All Active Problems Swelling of eyelid (Acute) Pain around right eye (Acute) Preseptal cellulitis of right eye (Acute) Attention deficit hyperactivity disorder, combined type (Acute 03/11/13) Pilonidal cyst (Acute) Tobacco dependence (Chronic) Contusion of foot (Acute) Medical History Opioid dependence in remission Vitiligo Surgical History Status post incision and drainage Family History Mother Essential hypertension Depression Father No problems noted. Sister Essential hypertension Sister No problems noted. Brother No problems noted. 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 Adopted: No Caregiver/Support person: No Foster care: No Household members: none Housing: apartment Number of Children: 0 Communication Needs: None Education Level: high school Do you need help understanding health information?: Often 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 Pets and animals: No Sexually active: Yes Do you think of yourself as: straight/heterosexual Current gender identity: male What is your relationship status?: never How often do you talk on the phone with friends or family?: never How often do you get together with friends or relatives?: twice per week How often do you attend gnosticism or presybeterian services?: decline to answer Do you belong to any clubs or organized social groups?: no Panel score (0-1 are the most socially isolated patients): 0 What type of physical activity do you participate in: regular exercise Duration: > 90 minutes/day Frequency: 5-6 times per week Apurva/Catholic: None Special apurva needs: No Seatbelt use: never Helmet use: No 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
[2023-05-04] MEDS: Erythromycin Ophth Oint 3.5 GM TUBE OU (09:18)
== END 2023-05-04 09:19 | disposition home or self-care (01) ==
PROVIDERS: Emergency Provider Emergency Medicine; PCP Family Medicine
DX: H02.841 Edema of right upper eyelid (principal); H57.11 Ocular pain, right eye; L03.213 Periorbital cellulitis
CPT/HCPCS: 99283

== ENCOUNTER 2024-08-21 09:54 | Emergency (ER) | payer MEDICAID, SELFPAY ==
[2024-08-21 10:03] VITALS: BP 161/82; PULSE 88; RESP 16; TEMP 36.7; O2SAT 98
[2024-08-21 10:07] VITALS: BP 161/82; PULSE 88; RESP 16; TEMP 36.7; O2SAT 98
--- NOTE | 2024-08-21 10:23 | W.ED.GENAD ---
Discharge Plan Disposition Patient Disposition: Home Discharge Details Clinical Impression: Dental infection Primary Care Provider: Yovany Arndt ED Provider: Britt Zuniga Home Meds and New Rx's Prescriptions: New amoxicillin-pot clavulanate 875-125 mg tablet 1 tab PO BID Qty: 20 0RF No Action methadone 10 mg/5 mL solution 130 mg PO DAILY Discharge Instructions Instructions: Dental Pain ED Additional Instructions: Please call dentist in the local area to schedule follow-up appointment for reassessment/definitive management of your dental pain. Please take the Augmentin for the full course prescribed. This should provide some improvement in the next 48 to 72 hours. At this time it does not appear that there is an abscess to be drained, however this may change, so keep an eye out for increasing swelling/pain despite treatment. I encourage you to use Tylenol 1000 mg every 8 hours and ibuprofen 6 mg every 8 hours for pain. Please note that the Augmentin may cause antibiotic associated diarrhea, so I recommend taking with Activia yogurt or other probiotic to prevent this. Return to emergency care if develop new fever/chills, worsening pain/swelling despite treatment, other swelling in your mouth/difficulty breathing/difficulty swallowing, difficulty opening your mouth, or if you have any new/concerning symptoms and need to be rechecked again immediately HPI General Date/Time Provider Initiated Documentation: 08/21/24 09:56. HPI Narrative: Earl is a 28-year-old male who presents to the emergency department for evaluation of right upper jaw dental pain x 2 to 3 days. He has a history of extensive dental decay, poor dental access. Pain localized to upper right tooth, described as nagging and disrupting sleep. Tooth decayed with gum overgrowth and swelling. Took Tylenol 1000 mg and ibuprofen 400 mg at 0700 hours, providing some relief. Denies recent injury, pus drainage, fevers/ chills, headaches, vision or hearing changes. No regular dentist. Last antibiotics course a year ago. History of staph infection requiring hospitalization for 1.5 weeks a few years ago. Related Data Home Medications ?Medication ?Instructions ?Recorded ?Confirmed methadone 10 mg/5 mL oral solution 130 mg PO DAILY 10/05/21 08/21/24 amoxicillin 875 mg-potassium 1 tab PO BID #20 tabs 08/21/24 clavulanate 125 mg tablet Previous Rx's ?Medication ?Instructions ?Recorded amoxicillin 875 mg-potassium 1 tab PO BID #20 tabs 08/21/24 clavulanate 125 mg tablet Allergies Allergy/AdvReac Type Severity Reaction Status Date / Time No Known Allergies Allergy Verified 08/21/24 10:03 General Stated Complaint: DentalOral DERIC: 5 Exam Narrative Exam Narrative: Physical exam general Appearance: Normal. Patient is alert and oriented, no acute distress Vital signs: Within normal limits. HEENT: Missing right upper premolar with surrounding gingival erythema/edema. Extensive dental damage/decay noted. No intraoral swelling such as Isak's angina, trismus, or voice change. Skin: Warm and dry, no rash. Neurological: Cranial nerves II-XII intact, no deficits. Psychiatric: Normal. Course Vital Signs Vital signs: Vital Signs Temperature 36.7 C 08/21/24 10:03 Pulse 88 08/21/24 10:03 Respiratory Rate 16 08/21/24 10:03 Blood Pressure 161/82 H 08/21/24 10:03 Pulse Oximetry 98 08/21/24 10:03 Temperature 36.7 C 08/21/24 10:07 Temperature Source Tympanic 08/21/24 10:07 Pulse 88 08/21/24 10:07 Respiratory Rate 16 08/21/24 10:07 Blood Pressure 161/82 H 08/21/24 10:07 Blood Pressure Position Sitting 08/21/24 10:07 Pulse Oximetry 98 08/21/24 10:07 Oxygen Delivery Method Room Air 08/21/24 10:07 Oxygen Flow Rate 0 08/21/24 10:07 Pain Level 5 08/21/24 10:07 Medical Decision Making Initial Assessment: Earl is a 28-year-old male presenting with dental pain in the right upper premolar, which started 2 days ago. The tooth is decayed with gum overgrowth and swelling. He has experienced minimal relief with Tylenol and ibuprofen. ED Course: - Physical examination of the affected tooth revealed swelling and a hole in the tooth. No red flags concerning for deep space infection or systemic involvement requiring blood work or diagnostic imaging at this time - No pus drainage observed. - Neurological examination was normal. - Advised continuation of Tylenol and ibuprofen for pain management. -Augmentin initiated - Provided list of local dentists for follow-up care. - Instructed to monitor for new symptoms such as fevers, headaches, difficulty opening mouth, or additional swelling. Final Assessment: Earl's dental pain is due to a decayed right upper tooth with gum overgrowth and swelling. There is no indication for drainage at this time. He was advised to continue taking Tylenol and ibuprofen for pain management and to follow up with a dentist. Clinical Impression: - Dental pain due to decayed/broken right upper tooth with surrounding gingival edema. Will treat with Augmentin Disposition: - Discharge home with discharge instructions. Discharge instructions, including use of antibiotics, symptomatic management, and red flags indicating need for return to emergency care - Provided list of local dentists for follow-up care. MDM Components Evaluation: - Number of Differential Diagnoses or Management Options: Dental pain due to decayed tooth. - Amount and Complexity of Data Reviewed: Physical examination, patient history, neurological examination. - Risk of Complication and Morbidity or Mortality: Low risk if managed with antibiotics and pain relief; potential for increased risk if symptoms worsen or new symptoms develop. Patient consented to the use of HONORIO PFSH All Active Problems (Updated 08/21/24 @ 10:26 by Britt Knowles) Dental infection (Acute) Attention deficit hyperactivity disorder, combined type (Acute 03/11/13) Pilonidal cyst (Acute) Tobacco dependence (Chronic) Contusion of foot (Acute) Medical History Opioid dependence in remission Vitiligo Surgical History Status post incision and drainage Family History Mother Essential hypertension Depression Father No problems noted. Sister Essential hypertension Sister No problems noted. Brother No problems noted. 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 Adopted: No Caregiver/Support person: No Foster care: No Household members: none Housing: apartment Number of Children: 0 Communication Needs: None Education Level: high school Do you need help understanding health information?: Often 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 [employer] Pets and animals: No Sexually active: Yes Do you think of yourself as: straight/heterosexual Current gender identity: male What is your relationship status?: never How often do you talk on the phone with friends or family?: never How often do you get together with friends or relatives?: twice per week How often do you attend confucianism or anabaptism services?: decline to answer Do you belong to any clubs or organized social groups?: no Panel score (0-1 are the most socially isolated patients): 0 What type of physical activity do you participate in: regular exercise Duration: > 90 minutes/day Frequency: 5-6 times per week Apurva/Latter-Day: None Special apurva needs: No Seatbelt use: never Helmet use: No 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
[2024-08-21] MEDS: Amoxicillin 875/Clav. 125 TAB PO (10:35)
== END 2024-08-21 10:39 | disposition home or self-care (01) ==
PROVIDERS: Emergency Provider Nurse Practitioner Family; PCP Family Medicine
DX: K08.89 Other specified disorders of teeth and supporting structures (principal); K04.7 Periapical abscess without sinus; F17.210 Nicotine dependence, cigarettes, uncomplicated
CPT/HCPCS: 99283

== ENCOUNTER 2024-12-31 06:10 | Emergency (ER) | payer MEDICAID, SELFPAY ==
[2024-12-31 06:16] VITALS: BP 148/87; PULSE 122; RESP 16; TEMP 37.1; O2SAT 98
[2024-12-31 06:27] VITALS: BP 148/87; PULSE 122; RESP 16; TEMP 37.1; O2SAT 98
--- NOTE | 2024-12-31 06:27 | ED.GENADUL_ITS ---
Discharge Plan Discharge Details Chief Complaint: Cellulitis Clinical Impression: Cellulitis Primary Care Provider: Yovany Arndt ED Provider: Lidya Joya Home Meds and New Rx's Prescriptions: No Action methadone 10 mg/5 mL solution 130 mg PO DAILY Patient Comments: pt reports 140mg dose 12/31/24 HPI General Mode of arrival: ambulatory . Date/Time Provider Initiated Documentation: 12/31/24 06:11 . Limitations to Documentation: no limitations . Information obtained by: patient . HPI Narrative: 29yo M with hx of IVDU presenting with multiple sores on extremities. First noted about a week and a half ago on his left rubio, attributed to friction from rubber boots. Areas are warm, tender, and have had pustulent discharge. Aside from friction from boots, no trauma or injury. No numbness, tingling, weakness. No fevers, chills, rash, nausea, vomiting, abdominal pain, chest pain, shortness of breath, lightheadness, or other concerns. Related Data Home Medications Medication Instructions Recorded Confirmed methadone 10 mg/5 mL oral solution 130 mg PO DAILY 12/31/24 Allergies Allergy/AdvReac Type Severity Reaction Status Date / Time No Known Allergies Allergy Verified 12/31/24 06:28 General Stated Complaint: Cellulitis DERIC: 3 Review of Systems Narrative: see HPI Exam Narrative Exam Narrative: General: Alert, in no acute distress. Head: Normocephalic, atraumatic Neck: Trachea midline, Neck supple. ENT: MMM. Cardiac: RRR, no murmurs appreciated Resp: No respiratory distress. CTAB. Abd: Soft, non-distended, nontender : No suprapubic tenderness. Extremities: No deformities. No peripheral edema. Multiple erythematous lesions with pustulance, most pronounced left rubio x 2 and left wrist x 1. No induration or abscess. Sensation and pulses intact. Neurologic: GCS 15. Moves all extremities freely against gravity Course Vital Signs Vital signs: Vital Signs Temperature 37.1 C 12/31/24 06:16 Pulse 122 H 12/31/24 06:16 Respiratory Rate 16 12/31/24 06:16 Blood Pressure 148/87 H 12/31/24 06:16 Pulse Oximetry 98 12/31/24 06:16 Temperature 37.1 C 12/31/24 06:16 Temperature Source Temporal Artery Scan 12/31/24 06:16 Pulse 122 H 12/31/24 06:16 Respiratory Rate 16 12/31/24 06:16 Blood Pressure 148/87 H 12/31/24 06:16 Blood Pressure Position Sitting 12/31/24 06:16 Pulse Oximetry 98 12/31/24 06:16 Oxygen Delivery Method Room Air 12/31/24 06:16 Oxygen Flow Rate 0 12/31/24 06:16 Pain Level 2 12/31/24 06:16 Medical Decision Making 29yo M with hx of IVDU presenting with multiple sores on extremities. First noted about a week and a half ago on his left rubio, attributed to friction from rubber boots. Tachycardiac on arrival to 120's on arrival, vital signs otherwise reassuring. Cellulitis on multiple extremities on exam, purulence. No evident abscess, though consistent with spontaneously drained abscesses. No systemic symptoms and overall well appearing, not overtly septic however Given tachycardia, will send blood/wound cultures and labs, give IVFB, and treat with dose of IV clindamycin here (high suspcion for MRSA). If labs reassuring and vital signs improve, likely appropriate for outpatient treatment. Patient expressed interest in housing resources. Quality:SDOH Health Related Social Needs: Health related social needs inadequate housing risk of homeless food insecurity transpo insecurity material hardship lonely/isolated Health related social needs details would like help to find housing [facility] All Active Problems (Updated 12/31/24 @ 07:08 by Lidya Joya MD) Cellulitis (Acute) Attention deficit hyperactivity disorder, combined type (Acute 03/11/13) Pilonidal cyst (Acute) Tobacco dependence (Chronic) Contusion of foot (Acute) Medical History Opioid dependence in remission Vitiligo Surgical History Status post incision and drainage Family History Mother Essential hypertension Depression Father No problems noted. Sister Essential hypertension Sister No problems noted. Brother No problems noted. FAMILY HISTORY Substance abuse Alcohol abuse Essential hypertension Depression Social History Smoking/Tobacco Use Status: Current every day Tobacco Type: cigarettes Years smoked: 15 Tobacco: How many years used: 10 Quit status: not considering quitting Second Hand Exposure: Yes Smoking risk assessment performed?: Yes Alcohol Intake: current Alcohol Intake frequency: 3 or more drinks per day Alcohol type: hard liquor Drug use: Daily Substance use type: marijuana and painkillers Details: current sobriety heroin/fentanyl- clean for 3 years. 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 Pets and animals: No Sexually active: Yes Do you think of yourself as: straight/heterosexual Current gender identity: male What is your relationship status?: never How often do you talk on the phone with friends or family?: never How often do you get together with friends or relatives?: twice per week How often do you attend christian or episcopalian services?: decline to answer Do you belong to any clubs or organized social groups?: no Panel score (0-1 are the most socially isolated patients): 0 What type of physical activity do you participate in: regular exercise Duration: > 90 minutes/day Frequency: 5-6 times per week Apurva/Restorationism: None Special apurva needs: No Seatbelt use: never Helmet use: No 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) Do you feel safe at home: Yes Do you feel safe in your relationship?: Yes Additional Social history: difficulty accessing shower at place where he is staying 12/31/24 PAWSS Have you Been Recently Intoxicated or Drunk Within the Last 30 days?: Yes Have you Ever Experienced Previous Episodes of Alcohol Withdrawal?: Yes Have you ever Experienced Withdrawal Seizures?: Yes Have you ever Experienced Delirium Tremens(DT)s?: Yes Have you ever undergone Alcohol Rehabilitation Treatment (i.e, inpt ot outpatient treatment programs)?: Yes Have you ever Experienced Blackouts?: Yes Have you ever Combined Alcohol with other Downers within the last 90 days?: Yes Have you ever Combined Alcohol with any other Substance of Abuse during the last 90 days?: Yes Positive Blood Alcohol level on Presentation? [PCS.BAL]: Yes Evidence of Increased Autonomic Activity (i.e. HR>120, tremor, sweating, agitation, nausea)?: Yes Result: 10
[2024-12-31 07:29] LABS: Abs Immature Grans 0.06 10^3/uL (0.0-0.06); BE (Venous) 3 mmol/L (-2-3); HCO3 (Venous) 28 mmol/L (23-28); HCT 41.3 % (40.0-50.0); HGB 13.8 g/dL (13.5-17.5); Immature Grans % 0.6 %; MCH 29.5 pg (27.0-33.0); MCHC 33.4 % (32.0-36.0); MCV 88 fL (80-95); MPV 8.8 fL (8.0-11.0); O2 Sat (Venous) 91 %; Platelet Count 260 10^3/uL (130-400); RBC 4.68 10^6/uL (4.36-5.78); RDW 13.3 % (11.8-14.1); RDW-SD 43.2 fL; TCO2 (Venous) 25 mmol/L (24-29); WBC 9.30 10^3/uL (4.4-10.8); pCO2 (Venous) 44 mmHg (41-51); pO2 (Venous) 62 mmHg
[2024-12-31 07:44] LABS: INR 1.0 (0.9-1.1); PTT Activated 29.3 sec (20.6-30.2); Prothrombin Time 9.8 sec (9.1-11.1)
[2024-12-31] MEDS: CLINDAMYCIN 600 MG/50 ML BAG 100 MG IVPB (07:49)
[2024-12-31] MEDS: Normal Saline 1,000 ML 1000 ML IV (07:49)
[2024-12-31 07:50] LABS: ALT 60 U/L (10-49); AST 55 U/L (<34); Albumin 4.6 g/dL (3.4-5.0); Alkaline Phosphatase 127 U/L (46-116); Anion Gap 10 mmol/L (3-11); BUN 6 mg/dL (9-23); Bilirubin, Total 0.20 mg/dL (0.2-1.2); CO2 27.0 mmol/L (20.0-31.0); Calcium 9.3 mg/dL (8.3-10.6); Chloride 104 mmol/L (98-107); Glucose 97 mg/dL (74-106); Potassium 3.1 mmol/L (3.5-5.1); Sodium 141 mmol/L (136-145); Total Protein 8.6 g/dL (5.7-8.2)
--- NOTE | 2024-12-31 08:54 | W.EDPROG ---
Date of service: 12/31/24 Time of Service: 08:54 Medical Decision Making Care was signed out by Dr. Newman, please see her documentation regarding initial ED presentation and course. Plan at signout was to follow-up on labs and reassess patient. Labs reviewed and mild hypokalemia noted. I will give K-dur 40 meq. No leukocytosis. Mild transaminitis noted. Patient reassessed and is stable. Heart rate normalized. Patient does have elevated blood pressure. Patient is not septic. Plan for discharge with close outpatient follow-up with PCP for reassessment and follow-up regarding elevated LFTs and blood pressure. I will initiate treatment with Bactrim given concern for potential MRSA. I recommended warm compresses areas of ulcerated abscess. Usual and customary discharge instructions were reviewed with the patient. Lab Data Lab results reviewed: Yes I reviewed the patient's lab results. Labs: 12/31/24 07:25 Arm - Left Upper Wound Culture - Pending 12/31/24 07:25 Arm - Left Upper Gram Stain - Pending 12/31/24 07:25 Blood Blood Culture - Pending 12/31/24 07:17 Blood Blood Culture - Pending Laboratory Tests Range/Units 12/31/24 07:17 WBC (4.4-10.8) 10^3/uL 9.30 RBC (4.36-5.78) 10^6/uL 4.68 Hgb (13.5-17.5) g/dL 13.8 Hct (40.0-50.0) % 41.3 MCV (80-95) fL 88 MCH (27.0-33.0) pg 29.5 MCHC (32.0-36.0) % 33.4 RDW (11.8-14.1) % 13.3 Plt Count (130-400) 10^3/uL 260 MPV (8.0-11.0) fL 8.8 Immature Gran % % 0.6 Neutrophils % % 69.6 Lymphocytes % % 19.5 Monocytes % % 8.2 Eosinophils % % 1.5 Basophils % % 0.6 Nucleated RBC % (0.0-0.3) % 0.0 Absolute Neutrophils (1.2-6.7) 10^3/uL 6.47 Absolute Lymphocytes (1.2-3.4) 10^3/uL 1.81 Absolute Monocytes (0.1-0.8) 10^3/uL 0.76 Absolute Eosinophils (0.0-0.7) 10^3/uL 0.14 Absolute Basophils (0.0-0.2) 10^3/uL 0.06 PT (9.1-11.1) sec 9.8 INR (0.9-1.1) 1.0 APTT (20.6-30.2) sec 29.3 VBG pH (7.31-7.41) 7.41 VBG pCO2 (41-51) mmHg 44 VBG pO2 mmHg 62 VBG HCO3 (23-28) mmol/L 28 VBG Total CO2 (24-29) mmol/L 25 VBG O2 Saturation % 91 VBG Base Excess (-2-3) mmol/L 3 VBG Lactate (<or=2.0) mmol/L 2.0 Sodium (136-145) mmol/L 141 Potassium (3.5-5.1) mmol/L 3.1 L Chloride (98-107) mmol/L 104 Carbon Dioxide (20.0-31.0) mmol/L 27.0 Anion Gap (3-11) mmol/L 10 BUN (9-23) mg/dL 6 L Creatinine (0.73-1.18) mg/dL 0.5 L Est GFR (CKD-EPI 2020) (mL/min/1.73m2) 221.80 Glucose (74-106) mg/dL 97 Calcium (8.3-10.6) mg/dL 9.3 Total Bilirubin (0.2-1.2) mg/dL 0.20 AST (<34) U/L 55 H ALT (10-49) U/L 60 H Alkaline Phosphatase (46-116) U/L 127 H Total Protein (5.7-8.2) g/dL 8.6 H Albumin (3.4-5.0) g/dL 4.6 Quality:SDOH Health Related Social Needs: Health related social needs inadequate housing risk of homeless food insecurity transpo insecurity material hardship lonely/isolated Health related social needs details would like help to find housing Discharge Plan Disposition Patient Disposition: Home Condition: Stable Discharge Details Clinical Impression: Cutaneous abscess of left lower extremity, Elevated blood pressure reading, Elevated LFTs, Hypokalemia Primary Care Provider: Yovany Arndt ED Provider: Jesus Manuel Reed Home Meds and New Rx's Prescriptions: New sulfamethoxazole-trimethoprim [Bactrim DS] 800-160 mg tablet 1 tab PO BID Qty: 20 0RF Continued methadone 10 mg/5 mL solution 130 mg PO DAILY Patient Comments: pt reports 140mg dose 12/31/24 Discharge Instructions Instructions: Hypokalemia, Skin Abscess Additional Instructions: You are being treated for abscesses of your left lower leg. Please be sure to take full course of antibiotic as prescribed. Apply warm compresses to the areas as discussed. Please follow-up with your primary care physician. Call today. Your blood pressure was elevated today. Please be sure to follow-up and discuss this with your doctor. Additional outpatient diagnostic testing and treatment may be necessary. Your liver function test were elevated today. A hepatitis panel is pending. Please be sure to discuss this with your doctor. Additional outpatient diagnostic testing and treatment may be necessary. Return to the emergency department immediately for any worsening or new concerning symptoms. Stand Alone Forms: Portal Information Referrals: Yovany Arndt DO [Primary Care Provider, Medicine] Discharge Data Discharge Date/Time-TO BE ENTERED AT DEPARTURE: 12/31/24 09:46
[2024-12-31] MEDS: Potassium Chloride 20 MEQ TABCR 40 MEQ PO (09:02)
[2025-01-01 12:08] LABS: Hepatitis A Antibody IgM Negative (Negative); Hepatitis C Ab w Rflx HCV PCR Reactive (Negative)
--- NOTE | 2025-01-01 19:28 | W.ED.FU ---
Date of service: 01/01/25 Time of Service: 19:28 Follow Up Plan: Wound culture positive for Strep Pyrogenes, DC'd with Bactrim, additional Abx Cephalexin 500mg Sent to pharmacy on file. Left voice mail for patient.
--- NOTE | 2025-01-03 08:21 | NUR.NOTE ---
Access chart to get the patient address to send a letter by Dr. Carroll for a wound culture result. Nursing Note:
[2025-01-04 11:40] LABS: HCV RNA Detection Quantitative 225 IU/mL (Undetected); HCV RNA Qualitative Detected (Undetected)
--- NOTE | 2025-01-05 14:20 | W.ED.FU ---
Date of service: 01/05/25 Time of Service: 14:20 Follow Up Plan: I called the patient's phone number in the chart to discuss his hepatitis C. He did not answer so I left a voicemail for return call.
== END 2024-12-31 09:46 | disposition home or self-care (01) ==
PROVIDERS: Student in an Organized Health Care Education/Training Program; Emergency Provider Student in an Organized Health Care Education/Training Program; PCP Family Medicine
DX: L02.416 Cutaneous abscess of left lower limb (principal); B95.0 Streptococcus, group A, as the cause of diseases classified elsewhere; R03.0 Elevated blood-pressure reading, without diagnosis of hypertension; F11.21 Opioid dependence, in remission; F17.210 Nicotine dependence, cigarettes, uncomplicated; E87.6 Hypokalemia
CPT/HCPCS: 00123; 36415; 80053; 82805; 86704; 86709; 86803; 87040; 87077; 87340; 87522; 96374; 99284; 83605; 85025; 85610; 85730; 87070; 87205; J0737